=== PATIENT | male | born 1935 | race Caucasian/White ===

== ENCOUNTER 2017-12-05 12:47 | Inpatient (IN) ==
--- NOTE | 2017-12-05 13:57 | Internal Med History&Physical ---
Date of Encounter: 12/05/17 Time of Encounter: 13:52 Assessment and Plan (1) UTI (urinary tract infection) Current visit: No Status: Acute No acute issues. Patient continues on Cipro. Denies any dysuria and is afebrile. Continues with generalized leg weakness and inability to walk. PT/OT eval pending. Qualifiers: Urinary tract infection type: acute cystitis Hematuria presence: without hematuria Qualified Code(s): N30.00 - Acute cystitis without hematuria (2) Diabetes mellitus Current visit: No Status: Chronic No acute issues. Diet controlled at home. Will do fingersticks for 48 to monitor. Recent HgbA1c 6.5 Qualifiers: Diabetes mellitus type: type 2 Diabetes mellitus assisted insulin use: without assisted use Diabetes mellitus complication status: with kidney complications Diabetes mellitus complication detail: with chronic kidney disease Chronic kidney disease stage: stage 3 (moderate) Qualified Code(s): E11.22 - Type 2 diabetes mellitus with diabetic chronic kidney disease; N18.3 - Chronic kidney disease, stage 3 (moderate) (3) CKD (chronic kidney disease) stage 3, GFR 30-59 ml/min Current visit: No Status: Chronic No acute issues. Current Cr 2.1, which is up from his baseline of 1.5. Will continue to monitor with serial labs. Continue on current meds. (4) HTN (hypertension) Current visit: No Status: Chronic VSS. Will continue on current meds. Qualifiers: Hypertension type: essential hypertension Qualified Code(s): I10 - Essential (primary) hypertension (5) CVA (cerebral vascular accident) Current visit: Yes Status: Chronic Patient with Hx of CVA x3. No focal motor deficits noted. Denies any residual from CVA. No hyperreflexia. Noted generalized bilateral leg weakness, but would still rate MS 5/5. Patient with reported slight rigidity noted with motor movement of upper extremities, more prominent distally. Will discuss with Dr. Pena Qualifiers: CVA mechanism: unspecified Qualified Code(s): I63.9 - Cerebral infarction, unspecified (6) Leg ulcer Current visit: Yes Status: Acute Patient with a leg ulceration to the right inner aspect of the leg and a small puntate type wound to the left anterior leg. States both have been blisters that have burst in the past several months and developed into ulcerations. Has been seen by wound care in the past, but now self treats with daily dsg changes at home. Will continue with daily dsg changes. No signs of infection noted. Qualifiers: Laterality: unspecified laterality Non-pressure ulcer stage: unspecified non-pressure ulcer stage Qualified Code(s): L97.909 - Non-pressure chronic ulcer of unspecified part of unspecified lower leg with unspecified severity Internal Medicine - H&P: HPI Chief complaint: weakness Admitted From: Hospital to Hospital Transfer Plans for Post Hospital Care: Home History of present illness: Mr. Paulson is a 82 year old male with past medical history of CVA with residual weakness, type 2 diabetes, hyperlipidemia, hypertension who presents to [facility] emergency department with complaint of weakness since this morning. He states that he felt sudden onset weakness while sitting on the toilet and was unable to get back up. He spent approximately 3 hours on the toilet before his found him and called EMS. He states he has experienced this one time before approximately 5 months ago where he was diagnosed with UTI and discharged without being admitted on antibiotic. He denies any focal weakness or loss of consciousness during this time. He does admit to some dysuria but denies any frequency, hematuria, flank pain, changes in bowel movements, dizziness, lightheadedness, nausea, vomiting, flank pain, fevers, chills. He states his bowel movements have been normal without any evidence of blood and is not experiencing any confusion or altered mental status. Laboratory results were significant for a white count of 22.4 and a BUNs/ creatinine of 28/1.90 which is around his baseline. They did not obtain a head CT at that time which was negative for acute process as well as a chest x-ray which showed possible atelectasis otherwise within normal limits. Urinalysis shows evidence of nitrites and leukocyte esterase with bacteria and was sent for culture. Patient was treated with Cipro for his UTI. Rec'd fluid resuscitation and recovered well prior to DC to rehab. Patient appears relaxed and denies any current discomforts or dyspnea. States that he remains unable to walk since his admission due to weakness. States that he was able to walk >100 ft at home prior to admission. Denies any residue to his previous CVA and no focal deficits noted during exam. Patient with a wound to the inner aspect of the right leg with scant amount of serous drainage rec' d. Wound appears approx 1-2 cm x 5 cm. Patient states that he has had the wound for several weeks and has been seen in a wound clinic for it, but now treats it at home. Small punctate type wound also noted to the left anterior leg, which he states is almost healed. States that these were blisters that had burst and became ulcerations. Past Med Surg Social Fam HX - Past Medical History Medical history: CVA, diabetes, hyperlipidemia, hypertension, renal disease Additional medical history: CVA x4 Psychiatric history: no psych history - Past Surgical History Additional surgical history: left knee surgery - Social History Smoking Status: Light tobacco smoker Smokeless Tobacco Status: No Alcohol use: none Drug use: none - Family History Father Hx Family Cancer: Yes (Brain Tumor) Brother Adopted: No Age: 80 Living Status: Still Living Internal Medicine - H&P: Meds Citalopram [CeleXA] 40 mg PO DAILY 10/16/16 [History] Clopidogrel [Plavix] 75 mg PO DAILY 10/16/16 [History] Gabapentin [Neurontin] 300 mg PO TID 10/16/16 [History] Simvastatin [Zocor] 20 mg PO HS 10/16/16 [History] Furosemide [Lasix] 20 mg PO DAILY 12/02/17 [History] Iron Ps Cmplx/Vit B12/FA [Poly-Iron 150 Forte Capsule] 1 cap PO DAILY 12/02/17 [ History] Multivits,Ca,Min/Iron/FA/Lycop [Centrum Men's Tablet] 3 tab PO DAILY 12/02/17 [ History] Potassium Chloride [Klor-Con 10] 10 meq PO BID 12/02/17 [History] Ciprofloxacin [Cipro] 500 mg PO BID #8 tablet 12/04/17 [Rx] 3 Allergy/AdvReac Type Severity Reaction Status Date / Time Penicillins Allergy See Verified 11/13/17 22:32 Comments All Systems PM: A 10-system review of systems was performed and is negative for pertinent findings except as documented above in the HPI. - Constitutional Constitutional: as per HPI, no chills, no fever(s), no night sweats - EENT Eyes: no change in vision, no discharge, no pain, no photophobia Ears: no ear discharge, no ear pain, no tinnitus Nose, mouth and throat: no dysphagia, no nasal discharge, no neck pain, no sore throat - Cardiovascular Cardiovascular ROS IM: as per HPI, no chest pain, no diaphoresis, no dyspnea, no lightheadedness, no palpitations, no syncope - Respiratory Respiratory: as per HPI, no cough, no dyspnea, no wheezing, no excessive phlegm production - Gastrointestinal Gastrointestinal: no abdominal pain, no diarrhea, no hematemesis, no hematochezia, no melena, no nausea, no vomiting - Musculoskeletal Musculoskeletal ROS IM: as per HPI, muscle weakness, no numbness, no tingling - Integumentary Integumentary IM: as per HPI, skin ulcer, no rash, no unusual bruising - Neurological Neurological ROS: no confusion, no convulsions, no focal weakness, no numbness, no tingling, no tremor(s) - Hematologic/Lymphatic Hematologic/Lymphatic: no easy bruising - Constitutional Vitals: Temp Pulse BP Pulse Ox 97.4 F L 82 154/74 97 12/05/17 13:01 12/05/17 13:01 12/05/17 13:01 12/05/17 13:01 General appearance: Present: A&O X 3, pleasant - Head Head exam: Present: atraumatic, normocephalic - Eye Eye exam: Present: PERRL, conjuntiva pink, sclera anicteric Pupils: Present: PERRL - Neck Neck exam general surgery: Present: supple, trachea midline. Absent: lymphadenopathy - Respiratory Respiratory exam: Present: CTAB. Absent: accessory muscle use, rales, rhonchi, wheezes Additional comments: Lungs are CTA to the upper killian an diminished to the bases. Resp effort is relaxed. No productive cough noted. - Cardiovascular Cardiovascular exam: Present: RRR, +S1, +S2. Absent: diastolic murmur, gallop, rubs, systolic murmur - GI/Abdominal GI/Abdominal exam: Present: normal bowel sounds, soft, no peritoneal signs. Absent: distended, tenderness - Extremities Exam Extremities exam: Present: warm, radial pulses palpable and symmetrical. Absent : calf tenderness, cyanotic, pedal edema Additional comments: No focal weakness noted. Noted 1-2 x 5 cm wound to the inner right leg. Scant serous drainage noted. No erythema. Small 1cm punctuate type wound to the left anterior leg. No drainage and no erythema. Bilateral legs have +1 pitting edema. - Neurological Exam Neurological exam: Present: CN II-XII intact, oriented X3, no focal deficits. Absent: pronater drift, facial droop, speech deficit - Skin Skin exam: Present: dry, intact
--- NOTE | 2017-12-05 14:30 | Physcial Medicine-Consult Note ---
Date of Encounter: 12/05/17 Time of Encounter: 14:25 Physical Medicine - AP (1) CVA (cerebral vascular accident) Comments: He has old CVA with right sided incoordination, tremor and rigidity. Present grasp reflex indicates some type of frontal lobe injurey. Status: Chronic Assessment and plan: Patient is appropriate for inpatient rehab services. He may benefit from a trial of Sinemet if his rigidity interferes with function. Initiate rehab services. Skin care for stasis ulcers. Bowel program for constipation. Add speech eval for swallowing eval. Code(s): I63.9 - Cerebral infarction, unspecified SNOMED Code(s): 755423057 Physical Medicine - HPI - Data of Consult Requesting Physician: Edwin Pena MD Primary Care Provider: Eleazar Gray MD - Consult Narrative History of present illness: Mr. Paulson is a 82 year old RH male with previous CVA X4, admitted acutely to [facility] in transfer from [place] ED with UTI, Sepsis, and decline in function. He admits to loss of sensation in his feet, constipation, and intermittent difficulty swallowing. He denies pain, visual change, or loss of sensation elsewhere. Due to his generalized weakness, he has become dependent for mobility and ADL. He has not moved his bowels in 2.5 days. His normal habit at home is every other day. CC: Edwin Pena MD Past Med Surg Social Fam HX - Past Medical History Attestation: Yes The following information was validated with the patient. Medical history: CVA, diabetes, hyperlipidemia, hypertension, renal disease Additional medical history: CVA x4 Psychiatric history: no psych history - Past Surgical History Additional surgical history: left knee surgery - Social History Smoking Status: Light tobacco smoker Smokeless Tobacco Status: No Alcohol use: none Drug use: none - Family History Father Hx Family Cancer: Yes (Brain Tumor) Brother Adopted: No Age: 80 Living Status: Still Living Medications and Allergies Citalopram [CeleXA] 40 mg PO DAILY 10/16/16 [History] Clopidogrel [Plavix] 75 mg PO DAILY 10/16/16 [History] Gabapentin [Neurontin] 300 mg PO TID 10/16/16 [History] Simvastatin [Zocor] 20 mg PO HS 10/16/16 [History] Furosemide [Lasix] 20 mg PO DAILY 12/02/17 [History] Iron Ps Cmplx/Vit B12/FA [Poly-Iron 150 Forte Capsule] 1 cap PO DAILY 12/02/17 [ History] Multivits,Ca,Min/Iron/FA/Lycop [Centrum Men's Tablet] 3 tab PO DAILY 12/02/17 [ History] Potassium Chloride [Klor-Con 10] 10 meq PO BID 12/02/17 [History] Ciprofloxacin [Cipro] 500 mg PO BID #8 tablet 12/04/17 [Rx] 3 Allergy/AdvReac Type Severity Reaction Status Date / Time Penicillins Allergy See Verified 11/13/17 22:32 Comments All systems: reviewed and no additional remarkable complaints except as stated ( As noted in PMH and HPI.) Physical Medicine - Exam - Constitutional Vitals: Temp Pulse BP Pulse Ox 97.4 F L 82 154/74 97 12/05/17 13:01 12/05/17 13:01 12/05/17 13:01 12/05/17 13:01 General appearance: cooperative, morbidly obese, no acute distress - Head Head exam: Present: atraumatic, normocephalic - Eye Eye exam: Present: EOMI - ENT ENT exam: Present: mucous membranes moist Additional comments: Tongue protrudes midline. - Neck Neck exam: Present: full ROM. Absent: tenderness - Respiratory Respiratory exam: Present: decreased breath sounds, rales Additional comments: Rales in left base. - Cardiovascular Cardiovascular exam: Present: RRR. Absent: diastolic murmur, gallop, rubs, systolic murmur - GI/Abdominal GI/Abdominal exam: Present: diminished bowel sounds, distended. Absent: tenderness - Extremities Exam Additional comments: 3+ BLE edemal Strength 4+/5 throughout Unstageable stasis ulcers [id number] above right medial malleolus, and [id number] on right instep/distal tibia. Superficial. POA - Neurological Exam Neurological exam: Present: abnormal gait, alert, CN II-XII intact, motor sensory deficit, oriented X3, reflexes normal, strengths equal and symetr throughout. Absent: pronater drift, facial droop Additional comments: No Santos's. He has uninhibited grasp release reflex. He has mild ridigity and tremor. Sensation absent in the toes and normalizes proximal Visual killian are full to confrontation. - Psychiatric Psychiatric exam: Present: depressed, normal affect, normal mood - Skin Additional comments: See extremity exam. Consult Discharge Plan - Plan Referrals: Eleazar Gray MD [Primary Care Provider] -
[2017-12-05] MEDS: *HR* Heparin 5,000 UNIT/ML VIAL SQ SCH (17:46)
[2017-12-05] MEDS: Gabapentin 300 MG CAPSULE PO SCH ×2 (17:47→21:57)
[2017-12-05] MEDS: Sennosides/Docusate Sodium TABLET PO SCH (21:57)
[2017-12-06 05:27] LABS: Basophils # 0.1 K/mcL (0.0-0.2); Basophils % 0.6 %; Eosinophils # 0.3 K/mcL (0.0-0.6); Eosinophils % 2.7 %; Hematocrit 31.8 % (37.5-50.1); Hemoglobin 10.6 g/dL (12.9-16.9); Immature Granulocytes % 0.9 % (0-4); Lymphocytes # 2.3 K/mcL (0.6-4.6); Lymphocytes % 23.3 %; Mean Corpuscular HGB Conc 33.3 g/dL (31.6-35.5); Mean Platelet Volume 8.9 fL (9.4-12.4); Monocytes % 10.1 %; Platelet Count 210 K/mcL (140-400); Red Blood Count 3.42 M/mcL (4.19-5.50); Red Cell Distribution Width 13.6 % (11.5-14.5); Segmented Neutrophils % 62.4 %
[2017-12-06 05:29] LABS: INR 1.1; Prothrombin Time 11.9 Seconds (9.4-12.1)
[2017-12-06 05:32] LABS: Activated Partial Thrombo Time 30.2 Seconds (26.0-36.0)
[2017-12-06 05:44] LABS: Calcium 8.2 mg/dL (8.6-10.3); Potassium 3.9 mEq/L (3.5-5.1)
[2017-12-06] MEDS: Multivit/Ca/Min/Fe/FA 1 TAB TABLET PO SCH (05:53)
[2017-12-06] MEDS: *HR* Heparin 5,000 UNIT/ML VIAL SQ SCH ×2 (05:54→17:25)
[2017-12-06] MEDS: Gabapentin 300 MG CAPSULE PO SCH ×3 (08:37→20:47)
[2017-12-06] MEDS: Sennosides/Docusate Sodium TABLET PO SCH ×2 (08:37→20:48)
[2017-12-06] MEDS: Furosemide 20 MG TABLET PO SCH (08:37)
--- NOTE | 2017-12-06 09:31 | Internal Med Progress Note ---
Date of Encounter: 12/06/17 Time of Encounter: 09:29 - Assessment and plan (1) UTI (urinary tract infection) Current Visit: No Status: Acute Assessment and plan: On cipor seems to be done afebrile Qualifiers: Urinary tract infection type: acute cystitis Hematuria presence: without hematuria Qualified Code(s): N30.00 - Acute cystitis without hematuria (2) CKD (chronic kidney disease) stage 3, GFR 30-59 ml/min Current Visit: No Status: Chronic Assessment and plan: His creatinine noted to be 2.5 needs to r/o any obstruction bladder scan few times cath if more then 300 cc will follow adjust meds as needed based on his Kidney function (3) Diabetes mellitus Current Visit: No Status: Chronic Assessment and plan: Sldiign scale and followup he is not taking any meds at the present time Qualifiers: Diabetes mellitus type: type 2 Diabetes mellitus longterm insulin use: without longterm use Diabetes mellitus complication status: with kidney complications Diabetes mellitus complication detail: with chronic kidney disease Chronic kidney disease stage: stage 3 (moderate) Qualified Code(s): E11.22 - Type 2 diabetes mellitus with diabetic chronic kidney disease; N18.3 - Chronic kidney disease, stage 3 (moderate) - Subjective Interval history: cross coverage no acute issues denies any chest pain SOB feels that his UTI is getting better no fever or chill overall he feels much better then he came in and was admitted - Constitutional Vitals: Temp Pulse Resp BP Pulse Ox 98.0 F 75 18 108/54 93 12/06/17 07:15 12/06/17 07:15 12/06/17 07:15 12/06/17 07:15 12/06/17 07:15 General appearance: Present: A&O X 3, pleasant, answers questions appropriately - Head Head exam: Present: atraumatic - Eye Eye exam: Present: EOMI, PERRL - Neck Neck exam general surgery: Present: supple. Absent: tenderness, nuchal rigidity - Respiratory Respiratory exam: Present: CTAB. Absent: respiratory distress, rhonchi, stridor , wheezes, tachypnea - Cardiovascular Cardiovascular exam: Present: RRR, +S1, +S2. Absent: diastolic murmur, irregular rhythm, JVD - GI/Abdominal GI/Abdominal exam: Present: normal bowel sounds, soft. Absent: distended, firm , guarding, rebound, rigid - Extremities Exam Extremities exam: Absent: pedal edema, tenderness - Neurological Exam Neurological exam: Present: alert, CN II-XII intact, oriented X3, strengths equal and symetr throughout. Absent: no focal deficits, facial droop, speech deficit Internal Medicine: Result - Labs CBC & Chem 7: 12/06/17 04:45 12/06/17 04:45 Labs: Short CBC 12/06/17 Range/Units 04:45 WBC 9.7 (4.3-11.1) K/mcL Hgb 10.6 L D (12.9-16.9) g/dL Hct 31.8 L (37.5-50.1) % Plt Count 210 (140-400) K/mcL Neutrophils # 6.0 (1.6-8.9) K/mcL BMP 12/06/17 04:45 Sodium 135 L Potassium 3.9 Chloride 102 Carbon Dioxide 24 BUN 43 H Creatinine 2.87 H Glucose 117 H Calcium 8.2 L - ABG Interpretation ABG results: PT/INR, D-dimer PT 11.9 Seconds (9.4-12.1) 12/06/17 04:45 - VTE Documentation of Mechanical Device: Graduated compression elastic hosiery Consult Discharge Plan - Plan Referrals: Eleazar Gray MD [Primary Care Provider] -
[2017-12-07] MEDS: *HR* Heparin 5,000 UNIT/ML VIAL SQ SCH ×2 (05:17→18:15)
[2017-12-07 05:26] LABS: Calcium 8.6 mg/dL (8.6-10.3); Potassium 4.1 mEq/L (3.5-5.1)
--- NOTE | 2017-12-07 10:01 | Internal Med Progress Note ---
Date of Encounter: 12/07/17 Time of Encounter: 09:59 - Assessment and plan (1) UTI (urinary tract infection) Current Visit: No Status: Acute Assessment and plan: on Cipro stable . Qualifiers: Urinary tract infection type: acute cystitis Hematuria presence: without hematuria Qualified Code(s): N30.00 - Acute cystitis without hematuria (2) CKD (chronic kidney disease) stage 3, GFR 30-59 ml/min Current Visit: No Status: Chronic Assessment and plan: Creatinine is getting better slowly improving . (3) Diabetes mellitus Current Visit: No Status: Chronic Assessment and plan: stable continue to monitor Qualifiers: Diabetes mellitus type: type 2 Diabetes mellitus superintendent container terminal insulin use: without superintendent container terminal use Diabetes mellitus complication status: with kidney complications Diabetes mellitus complication detail: with chronic kidney disease Chronic kidney disease stage: stage 3 (moderate) Qualified Code(s): E11.22 - Type 2 diabetes mellitus with diabetic chronic kidney disease; N18.3 - Chronic kidney disease, stage 3 (moderate) - Subjective Interval history: cross coverage No acute issues no SOB no chest pain no nausea vomiting or diarrhea He is complaining of constipation otherwise he feels fine . - Constitutional Vitals: Temp Pulse Resp BP Pulse Ox 97.8 F 96 16 112/71 92 12/07/17 08:01 12/07/17 08:01 12/07/17 08:01 12/07/17 08:01 12/07/17 08:01 General appearance: Present: A&O X 3, pleasant, answers questions appropriately - Head Head exam: Present: atraumatic - Eye Eye exam: Present: EOMI, PERRL Pupils: Present: PERRL - Neck Neck exam general surgery: Absent: tenderness, nuchal rigidity - Respiratory Respiratory exam: Present: CTAB. Absent: chest wall tenderness, rales, respiratory distress, rhonchi, stridor, wheezes, tachypnea - Cardiovascular Cardiovascular exam: Present: RRR, +S1, +S2. Absent: irregular rhythm, JVD - GI/Abdominal GI/Abdominal exam: Present: normal bowel sounds, soft. Absent: distended, firm , guarding, rebound, rigid, tenderness Additional comments: obese and soft - Extremities Exam Extremities exam: Present: pedal edema. Absent: tenderness - Neurological Exam Neurological exam: Present: altered, CN II-XII intact, oriented X3, no focal deficits. Absent: facial droop, speech deficit Internal Medicine: Result - Labs CBC & Chem 7: 12/06/17 04:45 12/07/17 04:41 Labs: BMP 12/07/17 04:41 Sodium 136 Potassium 4.1 Chloride 102 Carbon Dioxide 26 BUN 40 H Creatinine 2.67 H Glucose 145 H Calcium 8.6 - ABG Interpretation ABG results: PT/INR, D-dimer PT 11.9 Seconds (9.4-12.1) 12/06/17 04:45 - VTE Documentation of Mechanical Device: Graduated compression elastic hosiery Consult Discharge Plan - Plan Referrals: Eleazar Gray MD [Primary Care Provider] -
[2017-12-07] MEDS: Sennosides/Docusate Sodium TABLET PO SCH ×2 (11:21→20:02)
[2017-12-07] MEDS: Gabapentin 300 MG CAPSULE PO SCH ×2 (11:21→20:02)
[2017-12-07] MEDS: Furosemide 20 MG TABLET PO SCH (11:22)
[2017-12-07] MEDS: Multivit/Ca/Min/Fe/FA 1 TAB TABLET PO SCH (11:23)
[2017-12-08] MEDS: *HR* Heparin 5,000 UNIT/ML VIAL SQ SCH ×2 (05:00→18:32)
[2017-12-08 05:56] LABS: INR 1.1; Prothrombin Time 12.4 Seconds (9.4-12.1)
[2017-12-08 05:57] LABS: Basophils # 0.1 K/mcL (0.0-0.2); Basophils % 0.5 %; Eosinophils # 0.2 K/mcL (0.0-0.6); Eosinophils % 1.6 %; Hematocrit 34.9 % (37.5-50.1); Hemoglobin 11.6 g/dL (12.9-16.9); Immature Granulocytes % 1.2 % (0-4); Lymphocytes # 1.8 K/mcL (0.6-4.6); Lymphocytes % 16.5 %; Mean Corpuscular HGB Conc 33.2 g/dL (31.6-35.5); Mean Corpuscular Hemoglobin 31.4 pg (28.0-33.3); Mean Corpuscular Volume 94.3 fL (83.0-100.0); Mean Platelet Volume 8.5 fL (9.4-12.4); Neutrophils # 7.5 K/mcL (1.6-8.9); Platelet Count 232 K/mcL (140-400); Red Cell Distribution Width 13.4 % (11.5-14.5); Segmented Neutrophils % 71.2 %
[2017-12-08 05:59] LABS: Activated Partial Thrombo Time 31.6 Seconds (26.0-36.0)
[2017-12-08 06:12] LABS: Calcium 8.6 mg/dL (8.6-10.3); Potassium 4.4 mEq/L (3.5-5.1)
[2017-12-08] MEDS: Gabapentin 300 MG CAPSULE PO SCH ×3 (09:52→21:37)
[2017-12-08] MEDS: Multivit/Ca/Min/Fe/FA 1 TAB TABLET PO SCH (09:52)
[2017-12-08] MEDS: Furosemide 20 MG TABLET PO SCH (09:52)
[2017-12-08] MEDS: Sennosides/Docusate Sodium TABLET PO SCH ×2 (09:52→21:38)
[2017-12-08 10:43] LABS: Estimated Average Glucose 143 mg/dl; Hemoglobin A1C 6.6 %
--- NOTE | 2017-12-08 15:53 | Internal Med Progress Note ---
Date of Encounter: 12/08/17 Time of Encounter: 15:51 - Assessment and plan (1) UTI (urinary tract infection) Current Visit: Yes Status: Acute Assessment and plan: Improving. Continue cipro Qualifiers: Urinary tract infection type: acute cystitis Hematuria presence: without hematuria Qualified Code(s): N30.00 - Acute cystitis without hematuria (2) Diabetes mellitus Current Visit: Yes Status: Chronic Assessment and plan: Controlled. Monitor fingerstick blood sugar. Will adjust medications as necessary. Qualifiers: Diabetes mellitus type: type 2 Diabetes mellitus intermodal truck driver insulin use: without intermodal truck driver use Diabetes mellitus complication status: with kidney complications Diabetes mellitus complication detail: with chronic kidney disease Chronic kidney disease stage: stage 3 (moderate) Qualified Code(s): E11.22 - Type 2 diabetes mellitus with diabetic chronic kidney disease; N18.3 - Chronic kidney disease, stage 3 (moderate) (3) CKD (chronic kidney disease) stage 3, GFR 30-59 ml/min Current Visit: Yes Status: Chronic Assessment and plan: Stable. Creatinine 2.25 BUN 34. Will continue to monitor labs. Avoid any nephrotoxic agents. - Time Spent With Patient less than 15 minutes - Subjective Interval history: Participating well with therapy. Maintaining appetite and hydration. Denies fever, chills, nausea vomiting or diarrhea. Denies any other urinary symptoms denies shortness of breath or chest pain. - Constitutional Vitals: Temp Pulse Resp BP Pulse Ox 97.8 F 76 16 157/70 96 12/08/17 07:38 12/08/17 07:38 12/08/17 07:38 12/08/17 07:38 12/08/17 07:38 General appearance: Present: A&O X 3, pleasant, obese, answers questions appropriately - Head Head exam: Present: atraumatic, normocephalic - Eye Eye exam: Present: PERRL, conjuntiva pink, sclera anicteric Pupils: Present: PERRL - Neck Neck exam general surgery: Present: supple, trachea midline. Absent: lymphadenopathy - Respiratory Respiratory exam: Present: CTAB. Absent: accessory muscle use, rales, rhonchi, wheezes - Cardiovascular Cardiovascular exam: Present: RRR, +S1, +S2. Absent: diastolic murmur, gallop, rubs, systolic murmur - GI/Abdominal GI/Abdominal exam: Present: normal bowel sounds, soft, no peritoneal signs. Absent: distended, tenderness - Extremities Exam Extremities exam: Present: warm, radial pulses palpable and symmetrical. Absent : calf tenderness, cyanotic, pedal edema - Neurological Exam Neurological exam: Present: CN II-XII intact, oriented X3, no focal deficits. Absent: pronater drift, facial droop, speech deficit - Skin Skin exam: Present: dry, intact Internal Medicine: Result - Labs CBC & Chem 7: 12/08/17 05:20 12/08/17 05:20 Labs: Short CBC 12/08/17 Range/Units 05:20 WBC 10.6 (4.3-11.1) K/mcL Hgb 11.6 L (12.9-16.9) g/dL Hct 34.9 L (37.5-50.1) % Plt Count 232 (140-400) K/mcL Neutrophils # 7.5 (1.6-8.9) K/mcL BMP 12/08/17 05:20 Sodium 139 Potassium 4.4 Chloride 104 Carbon Dioxide 27 BUN 34 H Creatinine 2.25 H Glucose 147 H Calcium 8.6 - ABG Interpretation ABG results: PT/INR, D-dimer PT 12.4 Seconds (9.4-12.1) H 12/08/17 05:20 - VTE Documentation of Mechanical Device: Graduated compression elastic hosiery Consult Discharge Plan - Plan Referrals: Eleazar Gray MD [Primary Care Provider] -
[2017-12-09] MEDS: *HR* Heparin 5,000 UNIT/ML VIAL SQ SCH ×2 (05:22→18:27)
[2017-12-09] MEDS: Multivit/Ca/Min/Fe/FA 1 TAB TABLET PO SCH (11:07)
[2017-12-09] MEDS: Furosemide 20 MG TABLET PO SCH (11:08)
[2017-12-09] MEDS: Gabapentin 300 MG CAPSULE PO SCH ×3 (11:08→22:15)
[2017-12-09] MEDS: Sennosides/Docusate Sodium TABLET PO SCH ×2 (11:09→22:15)
--- NOTE | 2017-12-09 13:03 | Internal Med Progress Note ---
Date of Encounter: 12/09/17 Time of Encounter: 13:01 - Assessment and plan (1) UTI (urinary tract infection) Current Visit: Yes Status: Acute Assessment and plan: Improving. Continue cipro Qualifiers: Urinary tract infection type: acute cystitis Hematuria presence: without hematuria Qualified Code(s): N30.00 - Acute cystitis without hematuria (2) Diabetes mellitus Current Visit: Yes Status: Chronic Assessment and plan: Controlled. Monitor fingerstick blood sugar. Will adjust medications as necessary. Qualifiers: Diabetes mellitus type: type 2 Diabetes mellitus dedicated intermodal truck driver insulin use: without dedicated intermodal truck driver use Diabetes mellitus complication status: with kidney complications Diabetes mellitus complication detail: with chronic kidney disease Chronic kidney disease stage: stage 3 (moderate) Qualified Code(s): E11.22 - Type 2 diabetes mellitus with diabetic chronic kidney disease; N18.3 - Chronic kidney disease, stage 3 (moderate) (3) CKD (chronic kidney disease) stage 3, GFR 30-59 ml/min Current Visit: Yes Status: Chronic Assessment and plan: Stable. Creatinine 2.25 BUN 34. Will continue to monitor labs. Avoid any nephrotoxic agents. - Time Spent With Patient less than 15 minutes - Subjective Interval history: Participating well with therapy. Maintaining appetite and hydration. Denies fever, chills, nausea vomiting or diarrhea. Denies any other urinary symptoms denies shortness of breath or chest pain. Incontinent of bowel today after receiving laxative. - Constitutional Vitals: Temp Pulse Resp BP Pulse Ox 98.5 F 82 16 150/69 95 12/09/17 07:00 12/09/17 07:00 12/09/17 07:00 12/09/17 07:00 12/09/17 07:00 General appearance: Present: A&O X 3, pleasant, obese, answers questions appropriately - Head Head exam: Present: atraumatic, normocephalic - Eye Eye exam: Present: PERRL, conjuntiva pink, sclera anicteric Pupils: Present: PERRL - Neck Neck exam general surgery: Present: supple, trachea midline. Absent: lymphadenopathy - Respiratory Respiratory exam: Present: CTAB. Absent: accessory muscle use, rales, rhonchi, wheezes - Cardiovascular Cardiovascular exam: Present: RRR, +S1, +S2. Absent: diastolic murmur, gallop, rubs, systolic murmur - GI/Abdominal GI/Abdominal exam: Present: normal bowel sounds, soft, no peritoneal signs. Absent: distended, tenderness - Extremities Exam Extremities exam: Present: warm, radial pulses palpable and symmetrical. Absent : calf tenderness, cyanotic, pedal edema Additional comments: Bilateral lower extremities wrapped with [place] - Neurological Exam Neurological exam: Present: CN II-XII intact, oriented X3, no focal deficits. Absent: pronater drift, facial droop, speech deficit - Skin Skin exam: Present: dry, intact Internal Medicine: Result - Labs CBC & Chem 7: 12/08/17 05:20 12/08/17 05:20 - ABG Interpretation ABG results: PT/INR, D-dimer PT 12.4 Seconds (9.4-12.1) H 12/08/17 05:20 - VTE Documentation of Mechanical Device: Graduated compression elastic hosiery Consult Discharge Plan - Plan Referrals: Eleazar Gray MD [Primary Care Provider] -
[2017-12-10] MEDS: Multivit/Ca/Min/Fe/FA 1 TAB TABLET PO SCH (06:39)
[2017-12-10] MEDS: *HR* Heparin 5,000 UNIT/ML VIAL SQ SCH ×2 (06:39→18:02)
[2017-12-10] MEDS: Furosemide 20 MG TABLET PO SCH (10:30)
[2017-12-10] MEDS: Gabapentin 300 MG CAPSULE PO SCH ×3 (10:30→20:00)
[2017-12-10] MEDS: Sennosides/Docusate Sodium TABLET PO SCH (10:30)
[2017-12-10] MEDS ORDERED: Sennosides/Docusate Sodium TABLET PO PRN (10:45)
--- NOTE | 2017-12-10 12:40 | Internal Med Progress Note ---
Date of Encounter: 12/10/17 Time of Encounter: 12:37 - Assessment and plan (1) UTI (urinary tract infection) Current Visit: Yes Status: Acute Assessment and plan: This is clinically stable and without symptoms. He has been afebrile, etc. Qualifiers: Urinary tract infection type: acute cystitis Hematuria presence: without hematuria Qualified Code(s): N30.00 - Acute cystitis without hematuria (2) Diabetes mellitus Current Visit: Yes Status: Chronic Assessment and plan: He is without complaint and is doing reasonably well. We will continue current regimen. Qualifiers: Diabetes mellitus type: type 2 Diabetes mellitus alf insulin use: without terminal carman use Diabetes mellitus complication status: with kidney complications Diabetes mellitus complication detail: with chronic kidney disease Chronic kidney disease stage: stage 3 (moderate) Qualified Code(s): E11.22 - Type 2 diabetes mellitus with diabetic chronic kidney disease; N18.3 - Chronic kidney disease, stage 3 (moderate) (3) CKD (chronic kidney disease) stage 3, GFR 30-59 ml/min Current Visit: Yes Status: Chronic Assessment and plan: This is clinically stable and patient has no change in symptoms, etc. (4) HTN (hypertension) Current Visit: No Status: Chronic Assessment and plan: Clinically stable. We will continue home regimen and follow. Qualifiers: Hypertension type: essential hypertension Qualified Code(s): I10 - Essential (primary) hypertension (5) HLD (hyperlipidemia) Current Visit: No Status: Chronic Assessment and plan: Clinically stable. We will continue same regimen. Qualifiers: Hyperlipidemia type: unspecified Qualified Code(s): E78.5 - Hyperlipidemia , unspecified (6) CVA (cerebral vascular accident) Current Visit: Yes Status: Chronic Assessment and plan: These are remote and no current deficits seem to impact rehabilitation. Qualifiers: CVA mechanism: unspecified Qualified Code(s): I63.9 - Cerebral infarction, unspecified - Subjective Interval history: Patient has no acute issues. He is feeling well and moving his bowels and bladder well. He denies chest pain or abdominal pain, etc. He has no other acute issues. Nursing notes that he has been irascible. Discussed care with other providers and/or nursing. Patient has no complaint of chest discomfort, dyspnea, orthopnea, palpitations, nausea or vomiting, constipation or diarrhea, other changes in bowel habits, difficulty with urination, rash or itching, or other new complaints, except as mentioned above. Review of systems is otherwise negative. - Constitutional Vitals: Temp Pulse Resp BP Pulse Ox 98.2 F 80 16 162/78 96 12/10/17 06:30 12/10/17 06:30 12/10/17 06:30 12/10/17 06:30 12/10/17 06:30 General appearance: Present: pleasant, obese Exam: Examination: (Except as mentioned above): General: In no apparent distress. Alert and oriented 3. Nondiaphoretic. Head: Atraumatic and normocephalic. Respiratory: No use of accessory muscles. Lungs are clear throughout. Normal airflow. Cardiovascular: Regular rate and rhythm without murmur appreciated. Abdomen: Bowel sounds are normal. No hepatosplenomegaly mass or tenderness appreciated. Obese and therefore difficult to palpate deeply. Patient is examined upright in chair and this also limits exam. Extremities: No cyanosis clubbing or change in edema. Skin: Warm and non-diaphoretic with no new lesions noted. Internal Medicine: Result - Labs CBC & Chem 7: 12/08/17 05:20 12/08/17 05:20 - ABG Interpretation ABG results: PT/INR, D-dimer PT 12.4 Seconds (9.4-12.1) H 12/08/17 05:20 - VTE Documentation of Mechanical Device: Graduated compression elastic hosiery Consult Discharge Plan - Plan Referrals: Eleazar Gray MD [Primary Care Provider] -
[2017-12-11] MEDS: Multivit/Ca/Min/Fe/FA 1 TAB TABLET PO SCH (06:04)
[2017-12-11] MEDS: *HR* Heparin 5,000 UNIT/ML VIAL SQ SCH ×2 (06:04→18:32)
[2017-12-11] MEDS: Gabapentin 300 MG CAPSULE PO SCH ×3 (09:14→21:20)
[2017-12-11] MEDS: Furosemide 20 MG TABLET PO SCH (09:14)
--- NOTE | 2017-12-11 10:03 | Internal Med Progress Note ---
Date of Encounter: 12/11/17 Time of Encounter: 10:01 - Assessment and plan (1) UTI (urinary tract infection) Current Visit: Yes Status: Acute Assessment and plan: No acute issues. Patient maintains afebrile. Patient is finished his antibiotics and appears asymptomatic. Qualifiers: Urinary tract infection type: acute cystitis Hematuria presence: without hematuria Qualified Code(s): N30.00 - Acute cystitis without hematuria (2) Diabetes mellitus Current Visit: Yes Status: Chronic Assessment and plan: o acute issues. Patient's glucose has remained between 150-160. We will cover with sliding scale insulin. Qualifiers: Diabetes mellitus type: type 2 Diabetes mellitus retirement insulin use: without petroleum terminal plant operator use Diabetes mellitus complication status: with kidney complications Diabetes mellitus complication detail: with chronic kidney disease Chronic kidney disease stage: stage 3 (moderate) Qualified Code(s): E11.22 - Type 2 diabetes mellitus with diabetic chronic kidney disease; N18.3 - Chronic kidney disease, stage 3 (moderate) (3) CKD (chronic kidney disease) stage 3, GFR 30-59 ml/min Current Visit: Yes Status: Chronic Assessment and plan: No acute issues. Labs show creatinine to 2.25. We will continue with current medications and follow with serial labs. (4) HTN (hypertension) Current Visit: No Status: Chronic Assessment and plan: Vital signs remained stable. We will continue with current medications. Qualifiers: Hypertension type: essential hypertension Qualified Code(s): I10 - Essential (primary) hypertension (5) CVA (cerebral vascular accident) Current Visit: Yes Status: Chronic Assessment and plan: No acute issues. Patient shows no focal deficits on exam. Patient with history of remote CVA. We will continue with physical therapy Qualifiers: CVA mechanism: unspecified Qualified Code(s): I63.9 - Cerebral infarction, unspecified (6) Leg ulcer Current Visit: Yes Status: Acute Assessment and plan: Leg wounds appear to be healing well. Dressings are dry and intact. We will have wound care continue to follow. No signs of infection noted. Qualifiers: Laterality: unspecified laterality Non-pressure ulcer stage: unspecified non-pressure ulcer stage Qualified Code(s): L97.909 - Non-pressure chronic ulcer of unspecified part of unspecified lower leg with unspecified severity (7) Yeast dermatitis Current Visit: Yes Status: Acute Assessment and plan: Patient noted to have a yeast-type infection to his groin and scrotal area. No open wounds noted. We will start on nystatin cream twice a day - Time Spent With Patient less than 15 minutes - Subjective Interval history: Patient appears relaxed and currently denies any discomforts or shortness of breath. Patient states that he feels physical therapy has been progressing well and has stated that he is anxious to be discharged home. Patient states that he believes his leg wounds were healing well and that wound care has been there to evaluate. - Constitutional Vitals: Temp Pulse Resp BP Pulse Ox 97.7 F 77 14 149/81 97 12/11/17 07:00 12/11/17 07:00 12/11/17 07:00 12/11/17 07:00 12/11/17 07:00 General appearance: Present: A&O X 3, pleasant, obese - Head Head exam: Present: atraumatic, normocephalic - Eye Eye exam: Present: PERRL, conjuntiva pink, sclera anicteric Pupils: Present: PERRL - Neck Neck exam general surgery: Present: supple, trachea midline. Absent: lymphadenopathy - Respiratory Respiratory exam: Present: CTAB. Absent: accessory muscle use, rales, rhonchi, wheezes Additional comments: Lungs are clear throughout upper [place] and diminished to posterior basis. Respiratory effort appears relaxed. No productive cough noted. - Cardiovascular Cardiovascular exam: Present: RRR, +S1, +S2. Absent: diastolic murmur, gallop, rubs, systolic murmur - GI/Abdominal GI/Abdominal exam: Present: normal bowel sounds, soft, no peritoneal signs. Absent: distended, tenderness - Extremities Exam Extremities exam: Present: warm, radial pulses palpable and symmetrical. Absent : calf tenderness, cyanotic, pedal edema Additional comments: Patient continues to have +1 edema to bilateral lower legs. Patient also has a a wound ulceration to the inner aspect of the right leg with dressing dry and intact. Patient has a punctate type wound ulceration to the left anterior leg - Neurological Exam Neurological exam: Present: CN II-XII intact, oriented X3, no focal deficits. Absent: pronater drift, facial droop, speech deficit - Skin Skin exam: Present: dry, intact Internal Medicine: Result - Labs CBC & Chem 7: 12/08/17 05:20 12/08/17 05:20 - ABG Interpretation ABG results: PT/INR, D-dimer PT 12.4 Seconds (9.4-12.1) H 12/08/17 05:20 - VTE Documentation of Mechanical Device: Graduated compression elastic hosiery Consult Discharge Plan - Plan Referrals: Eleazar Gray MD [Primary Care Provider] -
[2017-12-12 05:26] LABS: Hematocrit 36.3 % (37.5-50.1); Hemoglobin 12.1 g/dL (12.9-16.9); Mean Corpuscular HGB Conc 33.3 g/dL (31.6-35.5); Mean Corpuscular Volume 93.1 fL (83.0-100.0); Mean Platelet Volume 8.5 fL (9.4-12.4); Platelet Count 215 K/mcL (140-400); Red Cell Distribution Width 13.2 % (11.5-14.5)
[2017-12-12 05:45] LABS: Albumin 3.5 g/dL (3.5-5.7); Albumin/Globulin Ratio 1.4 (1.1-2.2); Bilirubin,Total 0.7 mg/dL (0.3-1.0); Calcium 8.3 mg/dL (8.6-10.3); Globulin 2.5 g/dL (2.4-3.5); Magnesium 2.3 mg/dL (1.6-2.6); Potassium 4.1 mEq/L (3.5-5.1)
[2017-12-12] MEDS: Nystatin POWDER 30 GM BOTTLE TP SCH ×2 (06:10→22:08)
[2017-12-12] MEDS: *HR* Heparin 5,000 UNIT/ML VIAL SQ SCH ×2 (06:11→18:41)
[2017-12-12] MEDS: Multivit/Ca/Min/Fe/FA 1 TAB TABLET PO SCH (06:11)
[2017-12-12] MEDS: Ascorbic Acid 500 MG TABLET PO SCH (09:25)
[2017-12-12] MEDS: Gabapentin 300 MG CAPSULE PO SCH ×3 (09:26→22:08)
[2017-12-12] MEDS: Furosemide 20 MG TABLET PO SCH (09:26)
--- NOTE | 2017-12-12 12:50 | Internal Med Progress Note ---
Date of Encounter: 12/12/17 Time of Encounter: 12:47 - Assessment and plan (1) UTI (urinary tract infection) Current Visit: Yes Status: Acute Assessment and plan: No acute issues. Patient maintains afebrile. Patient is finished his antibiotics and appears asymptomatic. Qualifiers: Urinary tract infection type: acute cystitis Hematuria presence: without hematuria Qualified Code(s): N30.00 - Acute cystitis without hematuria (2) Diabetes mellitus Current Visit: Yes Status: Chronic Assessment and plan: o acute issues. Patient's glucose has remained between 150-160. We will cover with sliding scale insulin. Qualifiers: Diabetes mellitus type: type 2 Diabetes mellitus extermination inspector insulin use: without group home use Diabetes mellitus complication status: with kidney complications Diabetes mellitus complication detail: with chronic kidney disease Chronic kidney disease stage: stage 3 (moderate) Qualified Code(s): E11.22 - Type 2 diabetes mellitus with diabetic chronic kidney disease; N18.3 - Chronic kidney disease, stage 3 (moderate) (3) CKD (chronic kidney disease) stage 3, GFR 30-59 ml/min Current Visit: Yes Status: Chronic Assessment and plan: No acute issues. Labs show creatinine to 2.25. We will continue with current medications and follow with serial labs. (4) HTN (hypertension) Current Visit: No Status: Chronic Assessment and plan: Vital signs remained stable. We will continue with current medications. Qualifiers: Hypertension type: essential hypertension Qualified Code(s): I10 - Essential (primary) hypertension (5) CVA (cerebral vascular accident) Current Visit: Yes Status: Chronic Assessment and plan: No acute issues. Patient shows no focal deficits on exam. Patient with history of remote CVA. We will continue with physical therapy Qualifiers: CVA mechanism: unspecified Qualified Code(s): I63.9 - Cerebral infarction, unspecified (6) Leg ulcer Current Visit: Yes Status: Acute Assessment and plan: Leg wounds appear to be healing well. Dressings are dry and intact. We will have wound care continue to follow. No signs of infection noted. Qualifiers: Laterality: unspecified laterality Non-pressure ulcer stage: unspecified non-pressure ulcer stage Qualified Code(s): L97.909 - Non-pressure chronic ulcer of unspecified part of unspecified lower leg with unspecified severity (7) Yeast dermatitis Current Visit: Yes Status: Acute Assessment and plan: Patient noted to have a yeast-type infection to his groin and scrotal area. No open wounds noted. We will continue on nystatin cream twice a day - Subjective Interval history: Patient appears relaxed and currently denies any discomforts or shortness of breath. Patient states that he believes his leg wounds were healing well and that wound care has been there to evaluate. - Constitutional Vitals: Temp Pulse Resp BP Pulse Ox 97.8 F 80 16 148/87 96 12/12/17 07:00 12/12/17 07:00 12/12/17 07:00 12/12/17 07:00 12/12/17 07:00 General appearance: Present: A&O X 3, pleasant, obese - Head Head exam: Present: atraumatic, normocephalic - Eye Eye exam: Present: PERRL, conjuntiva pink, sclera anicteric Pupils: Present: PERRL - Neck Neck exam general surgery: Present: supple, trachea midline. Absent: lymphadenopathy - Respiratory Respiratory exam: Present: CTAB. Absent: accessory muscle use, rales, rhonchi, wheezes - Cardiovascular Cardiovascular exam: Present: RRR, +S1, +S2. Absent: diastolic murmur, gallop, rubs, systolic murmur Additional comments: Lungs are clear throughout upper [place] but noted diminished to lower basilar kill[place] - GI/Abdominal GI/Abdominal exam: Present: normal bowel sounds, soft, no peritoneal signs. Absent: distended, tenderness - Extremities Exam Extremities exam: Present: warm, radial pulses palpable and symmetrical. Absent : calf tenderness, cyanotic, pedal edema Additional comments: Patient continues to have +2 edema to lower extremities. Dressing to right inner leg and anterior left leg remained dry and intact. - Neurological Exam Neurological exam: Present: CN II-XII intact, oriented X3, no focal deficits. Absent: pronater drift, facial droop, speech deficit - Skin Skin exam: Present: dry, intact Internal Medicine: Result - Labs CBC & Chem 7: 12/12/17 04:00 12/12/17 04:00 Labs: Short CBC 12/12/17 Range/Units 04:00 WBC 10.3 (4.3-11.1) K/mcL Hgb 12.1 L (12.9-16.9) g/dL Hct 36.3 L (37.5-50.1) % Plt Count 215 (140-400) K/mcL BMP 12/12/17 04:00 Sodium 138 Potassium 4.1 Chloride 105 Carbon Dioxide 23 BUN 24 H Creatinine 1.62 H Glucose 106 H Calcium 8.3 L Liver Function 12/12/17 Range/Units 04:00 Total Bilirubin 0.7 (0.3-1.0) mg/dL AST 25 (13-39) Units/L ALT 41 (7-52) Units/L Alkaline Phosphatase 57 (34-104) Units/L Albumin 3.5 (3.5-5.7) g/dL - ABG Interpretation ABG results: PT/INR, D-dimer PT 12.4 Seconds (9.4-12.1) H 12/08/17 05:20 - VTE Documentation of Mechanical Device: Graduated compression elastic hosiery Consult Discharge Plan - Plan Referrals: Eleazar Gray MD [Primary Care Provider] -
[2017-12-13] MEDS: *HR* Heparin 5,000 UNIT/ML VIAL SQ SCH ×2 (05:01→17:33)
[2017-12-13] MEDS: Multivit/Ca/Min/Fe/FA 1 TAB TABLET PO SCH (05:01)
[2017-12-13] MEDS: Ascorbic Acid 500 MG TABLET PO SCH (08:47)
[2017-12-13] MEDS: Gabapentin 300 MG CAPSULE PO SCH ×3 (08:47→22:15)
[2017-12-13] MEDS: Furosemide 20 MG TABLET PO SCH (08:47)
[2017-12-13] MEDS: Nystatin POWDER 30 GM BOTTLE TP SCH ×2 (08:48→22:15)
--- NOTE | 2017-12-13 14:54 | Internal Med Progress Note ---
Date of Encounter: 12/13/17 Time of Encounter: 14:52 - Assessment and plan (1) UTI (urinary tract infection) Current Visit: Yes Status: Acute Assessment and plan: This is clinically stable and without symptoms. He has been afebrile, etc. Qualifiers: Urinary tract infection type: acute cystitis Hematuria presence: without hematuria Qualified Code(s): N30.00 - Acute cystitis without hematuria (2) Diabetes mellitus Current Visit: Yes Status: Chronic Assessment and plan: This is been reasonably stable. We will continue current regimen. Qualifiers: Diabetes mellitus type: type 2 Diabetes mellitus transcript clerk insulin use: without snf use Diabetes mellitus complication status: with kidney complications Diabetes mellitus complication detail: with chronic kidney disease Chronic kidney disease stage: stage 3 (moderate) Qualified Code(s): E11.22 - Type 2 diabetes mellitus with diabetic chronic kidney disease; N18.3 - Chronic kidney disease, stage 3 (moderate) (3) CKD (chronic kidney disease) stage 3, GFR 30-59 ml/min Current Visit: Yes Status: Chronic Assessment and plan: This is clinically stable and his labs have actually improved. Will check again in a couple of days. (4) HTN (hypertension) Current Visit: No Status: Chronic Assessment and plan: Clinically stable. We will continue home regimen and follow. Qualifiers: Hypertension type: essential hypertension Qualified Code(s): I10 - Essential (primary) hypertension (5) HLD (hyperlipidemia) Current Visit: No Status: Chronic Assessment and plan: Clinically stable. We will continue same regimen. Qualifiers: Hyperlipidemia type: unspecified Qualified Code(s): E78.5 - Hyperlipidemia , unspecified (6) CVA (cerebral vascular accident) Current Visit: Yes Status: Chronic Assessment and plan: This is remote and he has no sign of recurrent stroke, at this time. I reassured patient and , regarding the same the other day.. Qualifiers: CVA mechanism: unspecified Qualified Code(s): I63.9 - Cerebral infarction, unspecified - Subjective Interval history: Patient states that he is doing well and wants to go home. He is participating well with therapy and feels that he is giving it "all he's got." We discussed therapy and stability of fall risk, at length. Discussed care with other providers and/or nursing. Patient has no complaint of chest discomfort, dyspnea, orthopnea, palpitations, nausea or vomiting, constipation or diarrhea, other changes in bowel habits, difficulty with urination, rash or itching, or other new complaints, except as mentioned above. Review of systems is otherwise negative. - Constitutional Vitals: Temp Pulse Resp BP Pulse Ox 97.7 F 83 18 148/72 98 12/13/17 07:00 12/13/17 07:00 12/13/17 07:00 12/13/17 07:00 12/13/17 07:00 General appearance: Present: pleasant, obese Exam: Examination: (Except as mentioned above): General: In no apparent distress. Alert and oriented 3. Nondiaphoretic. Head: Atraumatic and normocephalic. Respiratory: No use of accessory muscles. Lungs are clear throughout. Normal airflow. Cardiovascular: Regular rate and rhythm without murmur appreciated. Abdomen: Bowel sounds are normal. No hepatosplenomegaly mass or tenderness appreciated. Morbidly obese and therefore difficult to palpate deeply. Extremities: No cyanosis clubbing or change in edema. This means that he still has 2-3+ edema at both lower extremities. Skin: Warm and non-diaphoretic with no new lesions noted. Internal Medicine: Result - Labs CBC & Chem 7: 12/12/17 04:00 12/12/17 04:00 - ABG Interpretation ABG results: PT/INR, D-dimer PT 12.4 Seconds (9.4-12.1) H 12/08/17 05:20 - VTE Documentation of Mechanical Device: Graduated compression elastic hosiery Consult Discharge Plan - Plan Referrals: Eleazar Gray MD [Primary Care Provider] -
[2017-12-14] MEDS: Multivit/Ca/Min/Fe/FA 1 TAB TABLET PO SCH (06:55)
[2017-12-14] MEDS: *HR* Heparin 5,000 UNIT/ML VIAL SQ SCH ×2 (06:55→17:33)
[2017-12-14] MEDS: Furosemide 20 MG TABLET PO SCH (07:51)
[2017-12-14] MEDS: Gabapentin 300 MG CAPSULE PO SCH ×3 (07:51→20:47)
[2017-12-14] MEDS: Nystatin POWDER 30 GM BOTTLE TP SCH ×2 (07:51→20:50)
[2017-12-14] MEDS: Ascorbic Acid 500 MG TABLET PO SCH (07:51)
--- NOTE | 2017-12-14 12:07 | Internal Med Progress Note ---
Date of Encounter: 12/14/17 Time of Encounter: 12:01 - Assessment and plan (1) Physical deconditioning Current Visit: Yes Status: Acute Assessment and plan: continue PT and OT. will follow progress. (2) Diabetes mellitus Current Visit: Yes Status: Chronic Assessment and plan: Controlled. Monitor fingerstick blood sugar. Will adjust medications as necessary. Qualifiers: Diabetes mellitus type: type 2 Diabetes mellitus fci insulin use: without fci use Diabetes mellitus complication status: with kidney complications Diabetes mellitus complication detail: with chronic kidney disease Chronic kidney disease stage: stage 3 (moderate) Qualified Code(s): E11.22 - Type 2 diabetes mellitus with diabetic chronic kidney disease; N18.3 - Chronic kidney disease, stage 3 (moderate) (3) CKD (chronic kidney disease) stage 3, GFR 30-59 ml/min Current Visit: Yes Status: Chronic Assessment and plan: Stable. Creatinine 2.25 BUN 34. Will continue to monitor labs. Avoid any nephrotoxic agents. - Time Spent With Patient less than 15 minutes - Subjective Interval history: Participating well with therapy. Maintaining appetite and hydration. Denies fever, chills, nausea vomiting or diarrhea. denies shortness of breath or chest pain. bowels moving as normal. - Constitutional Vitals: Temp Pulse Resp BP Pulse Ox 98 F 80 17 158/78 95 12/14/17 06:49 12/14/17 06:49 12/14/17 06:49 12/14/17 06:49 12/14/17 06:49 General appearance: Present: A&O X 3, pleasant, obese, answers questions appropriately - Head Head exam: Present: atraumatic, normocephalic - Eye Eye exam: Present: PERRL, conjuntiva pink, sclera anicteric Pupils: Present: PERRL - Neck Neck exam general surgery: Present: supple, trachea midline. Absent: lymphadenopathy - Respiratory Respiratory exam: Present: CTAB. Absent: accessory muscle use, rales, rhonchi, wheezes - Cardiovascular Cardiovascular exam: Present: RRR, +S1, +S2. Absent: diastolic murmur, gallop, rubs, systolic murmur - GI/Abdominal GI/Abdominal exam: Present: normal bowel sounds, soft, no peritoneal signs. Absent: distended, tenderness - Extremities Exam Extremities exam: Present: warm, radial pulses palpable and symmetrical. Absent : calf tenderness, cyanotic, pedal edema - Neurological Exam Neurological exam: Present: CN II-XII intact, oriented X3, no focal deficits. Absent: pronater drift, facial droop, speech deficit - Skin Skin exam: Present: dry, intact Internal Medicine: Result - Labs CBC & Chem 7: 12/12/17 04:00 12/12/17 04:00 - ABG Interpretation ABG results: PT/INR, D-dimer PT 12.4 Seconds (9.4-12.1) H 12/08/17 05:20 - VTE Documentation of Mechanical Device: Graduated compression elastic hosiery Consult Discharge Plan - Plan Referrals: Eleazar Gray MD [Primary Care Provider] -
[2017-12-15 05:58] LABS: Basophils # 0.1 K/mcL (0.0-0.2); Basophils % 0.4 %; Eosinophils # 0.3 K/mcL (0.0-0.6); Eosinophils % 2.3 %; Hematocrit 33.8 % (37.5-50.1); Hemoglobin 11.2 g/dL (12.9-16.9); INR 1.1; Immature Granulocytes % 0.9 % (0-4); Lymphocytes # 2.1 K/mcL (0.6-4.6); Lymphocytes % 17.2 %; Mean Corpuscular HGB Conc 33.1 g/dL (31.6-35.5); Mean Corpuscular Hemoglobin 30.9 pg (28.0-33.3); Mean Corpuscular Volume 93.1 fL (83.0-100.0); Mean Platelet Volume 8.3 fL (9.4-12.4); Monocytes # 0.9 K/mcL (0.0-1.3); Platelet Count 213 K/mcL (140-400); Prothrombin Time 12.3 Seconds (9.4-12.1); Red Blood Count 3.63 M/mcL (4.19-5.50); Red Cell Distribution Width 13.6 % (11.5-14.5); Segmented Neutrophils % 72.2 %
[2017-12-15 06:01] LABS: Activated Partial Thrombo Time 31.9 Seconds (26.0-36.0)
[2017-12-15 06:13] LABS: Calcium 8.2 mg/dL (8.6-10.3); Potassium 4.2 mEq/L (3.5-5.1)
[2017-12-15] MEDS: *HR* Heparin 5,000 UNIT/ML VIAL SQ SCH ×2 (06:30→18:32)
[2017-12-15] MEDS: Multivit/Ca/Min/Fe/FA 1 TAB TABLET PO SCH (06:33)
[2017-12-15] MEDS: Furosemide 20 MG TABLET PO SCH (08:24)
[2017-12-15] MEDS: Ascorbic Acid 500 MG TABLET PO SCH (08:24)
[2017-12-15] MEDS: Gabapentin 300 MG CAPSULE PO SCH ×3 (08:24→22:52)
[2017-12-15] MEDS: Nystatin POWDER 30 GM BOTTLE TP SCH ×2 (08:24→22:52)
--- NOTE | 2017-12-15 11:34 | Internal Med Progress Note ---
Date of Encounter: 12/15/17 Time of Encounter: 11:32 - Assessment and plan (1) Diabetes mellitus Current Visit: Yes Status: Chronic Assessment and plan: Controlled. Monitor fingerstick blood sugar. Will adjust medications as necessary. Qualifiers: Diabetes mellitus type: type 2 Diabetes mellitus usp insulin use: without intermediate accountant use Diabetes mellitus complication status: with kidney complications Diabetes mellitus complication detail: with chronic kidney disease Chronic kidney disease stage: stage 3 (moderate) Qualified Code(s): E11.22 - Type 2 diabetes mellitus with diabetic chronic kidney disease; N18.3 - Chronic kidney disease, stage 3 (moderate) (2) CKD (chronic kidney disease) stage 3, GFR 30-59 ml/min Current Visit: Yes Status: Chronic Assessment and plan: Stable. Will continue to monitor labs. Avoid any nephrotoxic agents. (3) Blister Current Visit: Yes Status: Acute Assessment and plan: wound to monitor. wear left heal lift boot while in bed. (4) Leukocytosis Current Visit: Yes Status: Acute Assessment and plan: was treated recently for UTI. will repeat U/A. will follow for results. Qualifiers: Leukocytosis type: unspecified Qualified Code(s): D72.829 - Elevated white blood cell count, unspecified (5) Yeast dermatitis Current Visit: Yes Status: Acute Assessment and plan: diflucan ordered for 3 days. continue topical treatment. - Time Spent With Patient 25 - 35 minutes - Subjective Interval history: Participating well with therapy. Ambulated with rolater Walker from room to therapy gym. Discussed safety with Walker. Maintaining appetite and hydration. Denies fever, chills, nausea vomiting or diarrhea. denies shortness of breath or chest pain. bowels moving as normal. Nursing reports that groin is still excoriated ,using cream and nystatin. Does not seem to be effective. White blood cell count elevated to 12.2. Will repeat urinalysis. Patient denies any urinary symptoms. Wound reports blister on left heel. Instructed to not wear Tony hose on left leg. Will wear heel lift boot while in bed. - Constitutional Vitals: Temp Pulse Resp BP Pulse Ox 98.0 F 78 18 139/61 95 12/15/17 06:34 12/15/17 06:34 12/15/17 06:34 12/15/17 06:34 12/15/17 06:34 General appearance: Present: A&O X 3, pleasant, obese, answers questions appropriately - Head Head exam: Present: atraumatic, normocephalic - Eye Eye exam: Present: PERRL, conjuntiva pink, sclera anicteric Pupils: Present: PERRL - Neck Neck exam general surgery: Present: supple, trachea midline. Absent: lymphadenopathy - Respiratory Respiratory exam: Present: CTAB. Absent: accessory muscle use, rales, rhonchi, wheezes - Cardiovascular Cardiovascular exam: Present: RRR, +S1, +S2. Absent: diastolic murmur, gallop, rubs, systolic murmur - GI/Abdominal GI/Abdominal exam: Present: normal bowel sounds, soft, no peritoneal signs. Absent: distended, tenderness - Extremities Exam Extremities exam: Present: warm, radial pulses palpable and symmetrical. Absent : calf tenderness, cyanotic, pedal edema - Neurological Exam Neurological exam: Present: CN II-XII intact, oriented X3, no focal deficits. Absent: pronater drift, facial droop, speech deficit - Skin Skin exam: Present: dry, intact Additional comments: Blister to left heal, groin area red and excoriated. Internal Medicine: Result - Labs CBC & Chem 7: 12/15/17 05:50 12/15/17 05:50 Labs: Short CBC 12/15/17 Range/Units 05:50 WBC 12.4 H (4.3-11.1) K/mcL Hgb 11.2 L (12.9-16.9) g/dL Hct 33.8 L (37.5-50.1) % Plt Count 213 (140-400) K/mcL Neutrophils # 9.0 H (1.6-8.9) K/mcL BMP 12/15/17 05:50 Sodium 137 Potassium 4.2 Chloride 106 Carbon Dioxide 24 BUN 19 Creatinine 1.69 H Glucose 131 H Calcium 8.2 L - ABG Interpretation ABG results: PT/INR, D-dimer PT 12.3 Seconds (9.4-12.1) H 12/15/17 05:50 - VTE Documentation of Mechanical Device: Graduated compression elastic hosiery Consult Discharge Plan - Plan Referrals: Eleazar Gray MD [Primary Care Provider] -
[2017-12-15] MEDS: Fluconazole 100 MG TABLET PO SCH (14:21)
[2017-12-15 14:33] LABS: Bilirubin,Urine Negative (Negative); Blood,Urine Negative (Negative); Clarity,Urine Slightly Cloudy (Clear); Color,Urine Yellow (Yellow); Glucose,Urine (UA) Normal (Normal); Ketones,Urine Negative (Negative); Leukocyte Esterase,Urine Moderate (Negative); Nitrite,Urine Negative (Negative); PH,Urine 6.5 pH Units (5.0-8.0); Protein,Urine 30 mg/dL (Neg-Trace); Specific Gravity,Urine 1.015 (1.010-1.025); Urobilinogen,Urine Normal (Normal)
[2017-12-15 14:49] LABS: Bacteria,Urine Moderate per hpf (None-Few); Squamous Epithelial Cell,Urine Many per lpf (None-Few)
[2017-12-16] MEDS: Multivit/Ca/Min/Fe/FA 1 TAB TABLET PO SCH (05:34)
[2017-12-16] MEDS: *HR* Heparin 5,000 UNIT/ML VIAL SQ SCH ×2 (05:34→18:33)
[2017-12-16] MEDS: Fluconazole 100 MG TABLET PO SCH (10:00)
[2017-12-16] MEDS: Gabapentin 300 MG CAPSULE PO SCH ×3 (10:00→21:14)
[2017-12-16] MEDS: Ascorbic Acid 500 MG TABLET PO SCH (10:00)
[2017-12-16] MEDS: Furosemide 20 MG TABLET PO SCH (10:04)
--- NOTE | 2017-12-16 11:28 | Internal Med Progress Note ---
Date of Encounter: 12/16/17 Time of Encounter: 11:26 - Assessment and plan (1) Diabetes mellitus Current Visit: Yes Status: Chronic Assessment and plan: Controlled. Monitor fingerstick blood sugar. Will adjust medications as necessary. Qualifiers: Diabetes mellitus type: type 2 Diabetes mellitus chcf insulin use: without exterminator helper use Diabetes mellitus complication status: with kidney complications Diabetes mellitus complication detail: with chronic kidney disease Chronic kidney disease stage: stage 3 (moderate) Qualified Code(s): E11.22 - Type 2 diabetes mellitus with diabetic chronic kidney disease; N18.3 - Chronic kidney disease, stage 3 (moderate) (2) CKD (chronic kidney disease) stage 3, GFR 30-59 ml/min Current Visit: Yes Status: Chronic Assessment and plan: Stable. Will continue to monitor labs. Avoid any nephrotoxic agents. (3) Blister Current Visit: Yes Status: Acute (4) Leukocytosis Current Visit: Yes Status: Acute Assessment and plan: was treated recently for UTI. will repeat U/A. will follow for results. will repeat CBC in am. Qualifiers: Leukocytosis type: unspecified Qualified Code(s): D72.829 - Elevated white blood cell count, unspecified (5) Yeast dermatitis Current Visit: Yes Status: Acute Assessment and plan: diflucan ordered for 3 days. continue topical treatment. - Time Spent With Patient less than 15 minutes - Subjective Interval history: Participating well with therapy. ambulating in hallway with therapy with walker. Discussed safety with Walker. Maintaining appetite and hydration. Denies fever, chills, nausea vomiting or diarrhea. denies shortness of breath or chest pain. bowels moving as normal. Wound reports blister on left heel. Instructed to not wear Tony hose on left leg. Will wear heel lift boot while in bed. - Constitutional Vitals: Temp Pulse Resp BP Pulse Ox 98.6 F 84 18 151/82 99 12/16/17 06:55 12/16/17 06:55 12/16/17 06:55 12/16/17 06:55 12/16/17 06:55 General appearance: Present: A&O X 3, pleasant, obese, answers questions appropriately - Head Head exam: Present: atraumatic, normocephalic - Eye Eye exam: Present: PERRL, conjuntiva pink, sclera anicteric Pupils: Present: PERRL - Neck Neck exam general surgery: Present: supple, trachea midline. Absent: lymphadenopathy - Respiratory Respiratory exam: Present: CTAB. Absent: accessory muscle use, rales, rhonchi, wheezes - Cardiovascular Cardiovascular exam: Present: RRR, +S1, +S2. Absent: diastolic murmur, gallop, rubs, systolic murmur - GI/Abdominal GI/Abdominal exam: Present: normal bowel sounds, soft, no peritoneal signs. Absent: distended, tenderness - Extremities Exam Extremities exam: Present: warm, radial pulses palpable and symmetrical. Absent : calf tenderness, cyanotic, pedal edema - Neurological Exam Neurological exam: Present: CN II-XII intact, oriented X3, no focal deficits. Absent: pronater drift, facial droop, speech deficit - Skin Skin exam: Present: dry, intact Internal Medicine: Result - Labs CBC & Chem 7: 12/15/17 05:50 12/15/17 05:50 Labs: Urine 12/15/17 Range/Units 14:00 Urine Color Yellow (Yellow) Urine Clarity Slightly Cloudy A (Clear) Urine pH 6.5 (5.0-8.0) pH Units Ur Specific [place] 1.015 (1.010-1.025) Urine Protein 30 H (Neg-Trace) mg/dL Urine Glucose (UA) Normal (Normal) mg/dL - ABG Interpretation ABG results: PT/INR, D-dimer PT 12.3 Seconds (9.4-12.1) H 12/15/17 05:50 - VTE Documentation of Mechanical Device: Graduated compression elastic hosiery Consult Discharge Plan - Plan Referrals: Eleazar Gray MD [Primary Care Provider] -
[2017-12-16] MEDS: Nystatin POWDER 30 GM BOTTLE TP SCH ×2 (18:33→21:16)
[2017-12-17] MEDS: *HR* Heparin 5,000 UNIT/ML VIAL SQ SCH ×2 (05:26→16:59)
[2017-12-17 05:44] LABS: Basophils # 0.1 K/mcL (0.0-0.2); Basophils % 0.6 %; Eosinophils # 0.2 K/mcL (0.0-0.6); Eosinophils % 2.7 %; Hematocrit 34.4 % (37.5-50.1); Hemoglobin 11.5 g/dL (12.9-16.9); Immature Granulocytes % 0.7 % (0-4); Lymphocytes % 23.3 %; Mean Corpuscular HGB Conc 33.4 g/dL (31.6-35.5); Mean Corpuscular Hemoglobin 31.3 pg (28.0-33.3); Mean Corpuscular Volume 93.5 fL (83.0-100.0); Mean Platelet Volume 8.5 fL (9.4-12.4); Monocytes # 0.5 K/mcL (0.0-1.3); Monocytes % 6.4 %; Neutrophils # 5.6 K/mcL (1.6-8.9); Platelet Count 235 K/mcL (140-400); Red Blood Count 3.68 M/mcL (4.19-5.50); Red Cell Distribution Width 13.8 % (11.5-14.5); Segmented Neutrophils % 66.3 %
[2017-12-17 05:57] LABS: Calcium 8.5 mg/dL (8.6-10.3); Potassium 4.3 mEq/L (3.5-5.1)
[2017-12-17] MEDS: Gabapentin 300 MG CAPSULE PO SCH ×3 (07:56→20:26)
[2017-12-17] MEDS: Fluconazole 100 MG TABLET PO SCH (07:56)
[2017-12-17] MEDS: Multivit/Ca/Min/Fe/FA 1 TAB TABLET PO SCH (07:56)
[2017-12-17] MEDS: Ascorbic Acid 500 MG TABLET PO SCH (07:56)
[2017-12-17] MEDS: Furosemide 20 MG TABLET PO SCH (07:56)
[2017-12-17] MEDS: Nystatin POWDER 30 GM BOTTLE TP SCH ×2 (07:57→20:27)
--- NOTE | 2017-12-17 15:20 | Internal Med Progress Note ---
Date of Encounter: 12/17/17 Time of Encounter: 15:18 - Assessment and plan (1) Diabetes mellitus Current Visit: Yes Status: Chronic Assessment and plan: Controlled. Monitor fingerstick blood sugar. Will adjust medications as necessary. Qualifiers: Diabetes mellitus type: type 2 Diabetes mellitus shelter insulin use: without shelter use Diabetes mellitus complication status: with kidney complications Diabetes mellitus complication detail: with chronic kidney disease Chronic kidney disease stage: stage 3 (moderate) Qualified Code(s): E11.22 - Type 2 diabetes mellitus with diabetic chronic kidney disease; N18.3 - Chronic kidney disease, stage 3 (moderate) (2) CKD (chronic kidney disease) stage 3, GFR 30-59 ml/min Current Visit: Yes Status: Chronic Assessment and plan: Stable. Will continue to monitor labs. Avoid any nephrotoxic agents. (3) Blister Current Visit: Yes Status: Acute Assessment and plan: wound to monitor. wear left heal lift boot while in bed. (4) Leukocytosis Current Visit: Yes Status: Acute Assessment and plan: was treated recently for UTI. will repeat U/A. will follow for results. Qualifiers: Leukocytosis type: unspecified Qualified Code(s): D72.829 - Elevated white blood cell count, unspecified (5) Yeast dermatitis Current Visit: Yes Status: Acute Assessment and plan: diflucan ordered for 3 days. continue topical treatment. - Subjective Interval history: Participating well with therapy. ambulating in hallway with therapy with walker. Maintaining appetite and hydration. Denies fever, chills, nausea vomiting or diarrhea. denies shortness of breath or chest pain. bowels moving as normal. L heel lift boot while in bed. Continues to have occasional dysuria and malodorous urine, as well as incontinence is a new issue during this stay. Will repeat urinalysis. - Constitutional Vitals: Temp Pulse Resp BP Pulse Ox 98.3 F 75 16 141/98 96 12/17/17 07:15 12/17/17 07:15 12/17/17 07:15 12/17/17 07:15 12/17/17 07:15 General appearance: Present: A&O X 3, pleasant, obese, answers questions appropriately - Head Head exam: Present: atraumatic, normocephalic - Eye Eye exam: Present: PERRL, conjuntiva pink, sclera anicteric Pupils: Present: PERRL - Neck Neck exam general surgery: Present: supple, trachea midline. Absent: lymphadenopathy - Respiratory Respiratory exam: Present: CTAB. Absent: accessory muscle use, rales, rhonchi, wheezes - Cardiovascular Cardiovascular exam: Present: RRR, +S1, +S2. Absent: diastolic murmur, gallop, rubs, systolic murmur - GI/Abdominal GI/Abdominal exam: Present: normal bowel sounds, soft, no peritoneal signs. Absent: distended, tenderness - Extremities Exam Extremities exam: Present: warm, radial pulses palpable and symmetrical. Absent : calf tenderness, cyanotic, pedal edema - Neurological Exam Neurological exam: Present: CN II-XII intact, oriented X3, no focal deficits. Absent: pronater drift, facial droop, speech deficit - Skin Skin exam: Present: dry, intact Internal Medicine: Result - Labs CBC & Chem 7: 12/17/17 05:20 12/17/17 05:20 Labs: Short CBC 12/17/17 Range/Units 05:20 WBC 8.4 (4.3-11.1) K/mcL Hgb 11.5 L (12.9-16.9) g/dL Hct 34.4 L (37.5-50.1) % Plt Count 235 (140-400) K/mcL Neutrophils # 5.6 (1.6-8.9) K/mcL BMP 12/17/17 05:20 Sodium 138 Potassium 4.3 Chloride 106 Carbon Dioxide 25 BUN 18 Creatinine 1.74 H Glucose 113 H Calcium 8.5 L - ABG Interpretation ABG results: PT/INR, D-dimer PT 12.3 Seconds (9.4-12.1) H 12/15/17 05:50 - VTE Documentation of Mechanical Device: Graduated compression elastic hosiery Consult Discharge Plan - Plan Referrals: Eleazar Gray MD [Primary Care Provider] -
[2017-12-17 17:30] LABS: Bilirubin,Urine Negative (Negative); Blood,Urine Negative (Negative); Clarity,Urine Clear (Clear); Color,Urine Yellow (Yellow); Glucose,Urine (UA) Normal (Normal); Ketones,Urine Negative (Negative); Leukocyte Esterase,Urine Trace (Negative); Nitrite,Urine Negative (Negative); Protein,Urine Negative (Neg-Trace); Urobilinogen,Urine Normal (Normal)
[2017-12-17 17:46] LABS: Transitional Epi Cells,Urine Few per hpf (None-Few)
[2017-12-17 17:47] LABS: Squamous Epithelial Cell,Urine Few per lpf (None-Few); WBC,Urine 0-3 per hpf (0-3)
[2017-12-18] MEDS: Multivit/Ca/Min/Fe/FA 1 TAB TABLET PO SCH (05:49)
[2017-12-18] MEDS: *HR* Heparin 5,000 UNIT/ML VIAL SQ SCH ×2 (05:49→17:41)
[2017-12-18] MEDS: Ascorbic Acid 500 MG TABLET PO SCH (09:36)
[2017-12-18] MEDS: Fluconazole 100 MG TABLET PO SCH (09:36)
[2017-12-18] MEDS: Furosemide 20 MG TABLET PO SCH (09:36)
[2017-12-18] MEDS: Nystatin POWDER 30 GM BOTTLE TP SCH ×2 (09:36→21:10)
[2017-12-18] MEDS: Gabapentin 300 MG CAPSULE PO SCH ×3 (09:36→21:10)
--- NOTE | 2017-12-18 14:46 | Internal Med Progress Note ---
Date of Encounter: 12/18/17 Time of Encounter: 14:44 - Assessment and plan (1) Diabetes mellitus Current Visit: Yes Status: Chronic Assessment and plan: No acute issues. Patient's glucose been well-controlled with most fingersticks readings less than 150. We will cover with sliding scale insulin. Qualifiers: Diabetes mellitus type: type 2 Diabetes mellitus client services specialist insulin use: without senior care use Diabetes mellitus complication status: with kidney complications Diabetes mellitus complication detail: with chronic kidney disease Chronic kidney disease stage: stage 3 (moderate) Qualified Code(s): E11.22 - Type 2 diabetes mellitus with diabetic chronic kidney disease; N18.3 - Chronic kidney disease, stage 3 (moderate) (2) CKD (chronic kidney disease) stage 3, GFR 30-59 ml/min Current Visit: Yes Status: Chronic Assessment and plan: No acute issues. Labs show creatinine to 1.74. We will continue with current medications and follow with serial labs. (3) HTN (hypertension) Current Visit: No Status: Chronic Assessment and plan: Vital signs remained stable. We will continue with current medications. Qualifiers: Hypertension type: essential hypertension Qualified Code(s): I10 - Essential (primary) hypertension (4) CVA (cerebral vascular accident) Current Visit: Yes Status: Chronic Assessment and plan: No acute issues. Patient shows no focal deficits on exam. Patient with history of remote CVA. We will continue with physical therapy Qualifiers: CVA mechanism: unspecified Qualified Code(s): I63.9 - Cerebral infarction, unspecified (5) Leg ulcer Current Visit: Yes Status: Acute Assessment and plan: Leg wounds appear to be healing well. Dressings are dry and intact. We will have wound care continue to follow. No signs of infection noted. Patient also has a blister to the heel of his left foot with currently is cover with a dressing. Wound care will continue follow-up on that also. Qualifiers: Laterality: unspecified laterality Non-pressure ulcer stage: unspecified non-pressure ulcer stage Qualified Code(s): L97.909 - Non-pressure chronic ulcer of unspecified part of unspecified lower leg with unspecified severity - Time Spent With Patient less than 15 minutes - Subjective Interval history: Patient appears relaxed and currently denies any discomforts or shortness of breath. Patient states that he believes his leg wounds were healing well and that wound care has been there to evaluate. Patient also states that he is now on non-weightbearing to his left foot due to a blister that is presented itself on the heel of his foot. - Constitutional Vitals: Temp Pulse Resp BP Pulse Ox 98.4 F 82 18 155/75 96 12/18/17 07:21 12/18/17 07:21 12/18/17 07:21 12/18/17 07:21 12/18/17 07:21 General appearance: Present: A&O X 3, pleasant, obese, answers questions appropriately - Head Head exam: Present: atraumatic, normocephalic - Eye Eye exam: Present: PERRL, conjuntiva pink, sclera anicteric Pupils: Present: PERRL - Neck Neck exam general surgery: Present: supple, trachea midline. Absent: lymphadenopathy - Respiratory Respiratory exam: Present: CTAB. Absent: accessory muscle use, rales, rhonchi, wheezes Additional comments: Lungs are clear throughout upper killian with diminished basilar killian noted. Neck productive cough noted. - Cardiovascular Cardiovascular exam: Present: RRR, +S1, +S2. Absent: diastolic murmur, gallop, rubs, systolic murmur - GI/Abdominal GI/Abdominal exam: Present: normal bowel sounds, soft, no peritoneal signs. Absent: distended, tenderness - Extremities Exam Extremities exam: Present: warm, radial pulses palpable and symmetrical. Absent : calf tenderness, cyanotic, pedal edema Additional comments: Patient has dressing to right anterior leg which is dry and intact. Patient has a blister to the heel of his left which is currently covered with a dressing. Bilateral legs have Unna boots in place. - Neurological Exam Neurological exam: Present: CN II-XII intact, oriented X3, no focal deficits. Absent: pronater drift, facial droop, speech deficit - Skin Skin exam: Present: dry, intact Internal Medicine: Result - Labs CBC & Chem 7: 12/17/17 05:20 12/17/17 05:20 Labs: Urine 12/17/17 Range/Units 14:55 Urine Color Yellow (Yellow) Urine Clarity Clear (Clear) Urine pH 6.0 (5.0-8.0) pH Units Ur Specific [place] 1.020 (1.010-1.025) Urine Protein Negative (Neg-Trace) mg/dL Urine Glucose (UA) Normal (Normal) mg/dL - ABG Interpretation ABG results: PT/INR, D-dimer PT 12.3 Seconds (9.4-12.1) H 12/15/17 05:50 - VTE Documentation of Mechanical Device: Graduated compression elastic hosiery Consult Discharge Plan - Plan Referrals: Eleazar Gray MD [Primary Care Provider] -
[2017-12-19] MEDS: Multivit/Ca/Min/Fe/FA 1 TAB TABLET PO SCH (06:47)
[2017-12-19] MEDS: *HR* Heparin 5,000 UNIT/ML VIAL SQ SCH ×2 (06:47→17:11)
[2017-12-19] MEDS: Ascorbic Acid 500 MG TABLET PO SCH (10:21)
[2017-12-19] MEDS: Gabapentin 300 MG CAPSULE PO SCH ×3 (10:21→20:34)
[2017-12-19] MEDS: Furosemide 20 MG TABLET PO SCH (10:21)
[2017-12-19] MEDS: Nystatin POWDER 30 GM BOTTLE TP SCH ×2 (10:25→20:34)
--- NOTE | 2017-12-19 12:41 | Internal Med Progress Note ---
Date of Encounter: 12/19/17 Time of Encounter: 12:39 - Assessment and plan (1) Diabetes mellitus Current Visit: Yes Status: Chronic Assessment and plan: No acute issues. Patient's glucose been well-controlled with most fingersticks readings less than 150. We will cover with sliding scale insulin. We will continue on current scheduled medications Qualifiers: Diabetes mellitus type: type 2 Diabetes mellitus long-term insulin use: without exterminator termite use Diabetes mellitus complication status: with kidney complications Diabetes mellitus complication detail: with chronic kidney disease Chronic kidney disease stage: stage 3 (moderate) Qualified Code(s): E11.22 - Type 2 diabetes mellitus with diabetic chronic kidney disease; N18.3 - Chronic kidney disease, stage 3 (moderate) (2) CKD (chronic kidney disease) stage 3, GFR 30-59 ml/min Current Visit: Yes Status: Chronic Assessment and plan: No acute issues. Labs show creatinine to 1.74. We will continue with current medications and follow with serial labs. (3) HTN (hypertension) Current Visit: No Status: Chronic Assessment and plan: Vital signs remained stable. We will continue with current medications. Qualifiers: Hypertension type: essential hypertension Qualified Code(s): I10 - Essential (primary) hypertension (4) CVA (cerebral vascular accident) Current Visit: Yes Status: Chronic Assessment and plan: No acute issues. Patient shows no focal deficits on exam. Patient with history of remote CVA. We will continue with physical therapy Qualifiers: CVA mechanism: unspecified Qualified Code(s): I63.9 - Cerebral infarction, unspecified (5) Leg ulcer Current Visit: Yes Status: Acute Assessment and plan: Leg wounds appear to be healing well. Dressings are dry and intact. We will have wound care continue to follow. No signs of infection noted. Patient also has a blister to the heel of his left foot with currently is cover with a dressing. Wound care will continue follow-up on that also. Qualifiers: Laterality: unspecified laterality Non-pressure ulcer stage: unspecified non-pressure ulcer stage Qualified Code(s): L97.909 - Non-pressure chronic ulcer of unspecified part of unspecified lower leg with unspecified severity - Time Spent With Patient less than 15 minutes - Subjective Interval history: Patient appears relaxed and currently denies any discomforts or shortness of breath. Patient states that he believes his leg wounds were healing. Patient states that he believes physical therapy is improving in strength. - Constitutional Vitals: Temp Pulse Resp BP Pulse Ox 98.2 F 77 18 161/85 98 12/19/17 07:18 12/19/17 07:18 12/19/17 07:18 12/19/17 07:18 12/19/17 07:18 General appearance: Present: A&O X 3, pleasant, obese, answers questions appropriately - Head Head exam: Present: atraumatic, normocephalic - Eye Eye exam: Present: PERRL, conjuntiva pink, sclera anicteric Pupils: Present: PERRL - Neck Neck exam general surgery: Present: supple, trachea midline. Absent: lymphadenopathy - Respiratory Respiratory exam: Present: CTAB. Absent: accessory muscle use, rales, rhonchi, wheezes Additional comments: Lungs are clear to up her killian and diminished throughout basilar killian. Respiratory effort appears relaxed. No productive cough noted. - Cardiovascular Cardiovascular exam: Present: RRR, +S1, +S2. Absent: diastolic murmur, gallop, rubs, systolic murmur - GI/Abdominal GI/Abdominal exam: Present: normal bowel sounds, soft, no peritoneal signs. Absent: distended, tenderness - Extremities Exam Extremities exam: Present: warm, radial pulses palpable and symmetrical. Absent : calf tenderness, cyanotic, pedal edema Additional comments: Patient continues to have edema to bilateral legs, but currently has Unna boots in place. Patient has a dressing to his left foot due to a blister on his left heel. Dressing is dry and intact - Neurological Exam Neurological exam: Present: CN II-XII intact, oriented X3, no focal deficits. Absent: pronater drift, facial droop, speech deficit - Skin Skin exam: Present: dry, intact Internal Medicine: Result - Labs CBC & Chem 7: 12/17/17 05:20 12/17/17 05:20 - ABG Interpretation ABG results: PT/INR, D-dimer PT 12.3 Seconds (9.4-12.1) H 12/15/17 05:50 - VTE Documentation of Mechanical Device: Graduated compression elastic hosiery Consult Discharge Plan - Plan Referrals: Eleazar Gray MD [Primary Care Provider] -
[2017-12-20] MEDS: *HR* Heparin 5,000 UNIT/ML VIAL SQ SCH ×2 (05:37→17:55)
[2017-12-20] MEDS: Multivit/Ca/Min/Fe/FA 1 TAB TABLET PO SCH (05:37)
[2017-12-20] MEDS: Gabapentin 300 MG CAPSULE PO SCH ×3 (11:04→21:05)
[2017-12-20] MEDS: Ascorbic Acid 500 MG TABLET PO SCH (11:05)
[2017-12-20] MEDS: Furosemide 20 MG TABLET PO SCH (11:05)
[2017-12-20] MEDS: Nystatin POWDER 30 GM BOTTLE TP SCH ×2 (11:06→21:06)
--- NOTE | 2017-12-20 13:22 | Internal Med Progress Note ---
Date of Encounter: 12/20/17 Time of Encounter: 13:10 - Assessment and plan (1) Diabetes mellitus Current Visit: Yes Status: Chronic Assessment and plan: Stable; continue current regimen. Qualifiers: Diabetes mellitus type: type 2 Diabetes mellitus fdc insulin use: without termite technician use Diabetes mellitus complication status: with kidney complications Diabetes mellitus complication detail: with chronic kidney disease Chronic kidney disease stage: stage 3 (moderate) Qualified Code(s): E11.22 - Type 2 diabetes mellitus with diabetic chronic kidney disease; N18.3 - Chronic kidney disease, stage 3 (moderate) (2) CKD (chronic kidney disease) stage 3, GFR 30-59 ml/min Current Visit: Yes Status: Chronic Assessment and plan: Stable; continue current regimen. (3) HTN (hypertension) Current Visit: No Status: Chronic Assessment and plan: Stable; continue current regimen. Qualifiers: Hypertension type: essential hypertension Qualified Code(s): I10 - Essential (primary) hypertension (4) CVA (cerebral vascular accident) Current Visit: Yes Status: Chronic Assessment and plan: Routine care per PT. Continue current regimen. Qualifiers: CVA mechanism: unspecified Qualified Code(s): I63.9 - Cerebral infarction, unspecified (5) Leg ulcer Current Visit: Yes Status: Acute Assessment and plan: Routine management/care per wound care and our nursing staff. Qualifiers: Laterality: unspecified laterality Non-pressure ulcer stage: unspecified non-pressure ulcer stage Qualified Code(s): L97.909 - Non-pressure chronic ulcer of unspecified part of unspecified lower leg with unspecified severity - Time Spent With Patient less than 15 minutes - Subjective Interval history: No concern, would like to find the channel for the [place] game. - Constitutional Vitals: Temp Pulse Resp BP Pulse Ox 97.8 F 77 18 113/72 95 12/20/17 11:55 12/20/17 11:55 12/20/17 11:55 12/20/17 11:55 12/20/17 11:55 General appearance: Present: A&O X 3, pleasant, obese, answers questions appropriately Exam: Gen: A&Ox3, NAD. Morbidly obese. HEENT: NCAT. Neck: No palpable lymphadenopathy or thyromegaly. CV: RRR, S1S2. No murmur. Capillary refill < 2 seconds. Pulm: CTAB. Abd: (+)BS. NDNT. Neuro: Generalized weakness, otherwise non-focal. Skin: No rash. Ext: No pitting edema. Internal Medicine: Result - Labs CBC & Chem 7: 12/17/17 05:20 12/17/17 05:20 - ABG Interpretation ABG results: PT/INR, D-dimer PT 12.3 Seconds (9.4-12.1) H 12/15/17 05:50 - VTE Documentation of Mechanical Device: Graduated compression elastic hosiery Consult Discharge Plan - Plan Referrals: Eleazar Gray MD [Primary Care Provider] -
[2017-12-21] MEDS: Multivit/Ca/Min/Fe/FA 1 TAB TABLET PO SCH (06:52)
[2017-12-21] MEDS: *HR* Heparin 5,000 UNIT/ML VIAL SQ SCH ×2 (06:52→18:18)
[2017-12-21] MEDS: Furosemide 20 MG TABLET PO SCH (08:26)
[2017-12-21] MEDS: Nystatin POWDER 30 GM BOTTLE TP SCH ×2 (08:26→19:43)
[2017-12-21] MEDS: Gabapentin 300 MG CAPSULE PO SCH ×3 (08:26→19:43)
[2017-12-21] MEDS: Ascorbic Acid 500 MG TABLET PO SCH (08:27)
--- NOTE | 2017-12-21 09:12 | Internal Med Progress Note ---
Date of Encounter: 12/21/17 Time of Encounter: 09:05 - Assessment and plan (1) Diabetes mellitus Current Visit: Yes Status: Chronic Assessment and plan: Stable; continue current regimen. Qualifiers: Diabetes mellitus type: type 2 Diabetes mellitus assisted insulin use: without watermelon inspector use Diabetes mellitus complication status: with kidney complications Diabetes mellitus complication detail: with chronic kidney disease Chronic kidney disease stage: stage 3 (moderate) Qualified Code(s): E11.22 - Type 2 diabetes mellitus with diabetic chronic kidney disease; N18.3 - Chronic kidney disease, stage 3 (moderate) (2) CKD (chronic kidney disease) stage 3, GFR 30-59 ml/min Current Visit: Yes Status: Chronic Assessment and plan: Stable; continue current regimen. (3) HTN (hypertension) Current Visit: No Status: Chronic Assessment and plan: Stable; continue current regimen. Qualifiers: Hypertension type: essential hypertension Qualified Code(s): I10 - Essential (primary) hypertension (4) CVA (cerebral vascular accident) Current Visit: Yes Status: Chronic Assessment and plan: Routine care per PT. Continue current regimen. Qualifiers: CVA mechanism: unspecified Qualified Code(s): I63.9 - Cerebral infarction, unspecified (5) Leg ulcer Current Visit: Yes Status: Acute Assessment and plan: Routine management/care per wound care and our nursing staff. Qualifiers: Laterality: unspecified laterality Non-pressure ulcer stage: unspecified non-pressure ulcer stage Qualified Code(s): L97.909 - Non-pressure chronic ulcer of unspecified part of unspecified lower leg with unspecified severity - Time Spent With Patient less than 15 minutes - Subjective Interval history: Feeling "pretty good." No particular concern at this time. - Constitutional Vitals: Temp Pulse Resp BP Pulse Ox 98.3 F 73 18 171/65 99 12/21/17 08:16 12/21/17 08:16 12/21/17 08:16 12/21/17 08:16 12/21/17 08:16 General appearance: Present: A&O X 3, pleasant, obese, answers questions appropriately Exam: Gen: A&Ox3, NAD. Morbidly obese. HEENT: NCAT. Neck: No palpable lymphadenopathy or thyromegaly. CV: RRR, S1S2. No murmur. Capillary refill < 2 seconds. Pulm: CTAB. Abd: (+)BS. NDNT. Neuro: Generalized weakness, otherwise non-focal. Skin: No rash. Ext: No pitting edema. Internal Medicine: Result - Labs CBC & Chem 7: 12/17/17 05:20 12/17/17 05:20 - ABG Interpretation ABG results: PT/INR, D-dimer PT 12.3 Seconds (9.4-12.1) H 12/15/17 05:50 - VTE Documentation of Mechanical Device: Graduated compression elastic hosiery Consult Discharge Plan - Plan Referrals: Eleazar Gray MD [Primary Care Provider] -
[2017-12-22] MEDS: *HR* Heparin 5,000 UNIT/ML VIAL SQ SCH ×2 (05:27→17:24)
[2017-12-22] MEDS: Multivit/Ca/Min/Fe/FA 1 TAB TABLET PO SCH (05:28)
[2017-12-22 06:19] LABS: Basophils % 0.5 %; Eosinophils # 0.2 K/mcL (0.0-0.6); Eosinophils % 2.7 %; Hematocrit 35.5 % (37.5-50.1); Hemoglobin 11.7 g/dL (12.9-16.9); INR 1.1; Immature Granulocytes % 0.7 % (0-4); Lymphocytes # 2.1 K/mcL (0.6-4.6); Mean Corpuscular Volume 93.9 fL (83.0-100.0); Mean Platelet Volume 8.9 fL (9.4-12.4); Monocytes # 0.6 K/mcL (0.0-1.3); Monocytes % 7.3 %; Neutrophils # 5.1 K/mcL (1.6-8.9); Platelet Count 248 K/mcL (140-400); Prothrombin Time 11.9 Seconds (9.4-12.1); Red Blood Count 3.78 M/mcL (4.19-5.50); Red Cell Distribution Width 14.1 % (11.5-14.5); Segmented Neutrophils % 62.8 %
[2017-12-22 06:22] LABS: Activated Partial Thrombo Time 34.4 Seconds (26.0-36.0)
[2017-12-22 06:30] LABS: Calcium 8.5 mg/dL (8.6-10.3); Potassium 4.4 mEq/L (3.5-5.1)
[2017-12-22] MEDS: Furosemide 20 MG TABLET PO SCH (08:09)
[2017-12-22] MEDS: Gabapentin 300 MG CAPSULE PO SCH ×3 (08:09→19:33)
[2017-12-22] MEDS: Ascorbic Acid 500 MG TABLET PO SCH (08:10)
[2017-12-22] MEDS: Nystatin POWDER 30 GM BOTTLE TP SCH ×2 (08:10→19:33)
--- NOTE | 2017-12-22 12:09 | Internal Med Progress Note ---
Date of Encounter: 12/22/17 Time of Encounter: 12:00 - Assessment and plan (1) Diabetes mellitus Current Visit: Yes Status: Chronic Assessment and plan: Stable; continue current regimen. Qualifiers: Diabetes mellitus type: type 2 Diabetes mellitus buttermaker continuous churn insulin use: without buttermaker continuous churn use Diabetes mellitus complication status: with kidney complications Diabetes mellitus complication detail: with chronic kidney disease Chronic kidney disease stage: stage 3 (moderate) Qualified Code(s): E11.22 - Type 2 diabetes mellitus with diabetic chronic kidney disease; N18.3 - Chronic kidney disease, stage 3 (moderate) (2) CKD (chronic kidney disease) stage 3, GFR 30-59 ml/min Current Visit: Yes Status: Chronic Assessment and plan: Stable; continue current regimen. (3) HTN (hypertension) Current Visit: No Status: Chronic Assessment and plan: Stable; continue current regimen. Qualifiers: Hypertension type: essential hypertension Qualified Code(s): I10 - Essential (primary) hypertension (4) CVA (cerebral vascular accident) Current Visit: Yes Status: Chronic Assessment and plan: Routine care per PT. Continue current regimen. Qualifiers: CVA mechanism: unspecified Qualified Code(s): I63.9 - Cerebral infarction, unspecified (5) Leg ulcer Current Visit: Yes Status: Acute Assessment and plan: Routine management/care per wound care and our nursing staff. Qualifiers: Laterality: unspecified laterality Non-pressure ulcer stage: unspecified non-pressure ulcer stage Qualified Code(s): L97.909 - Non-pressure chronic ulcer of unspecified part of unspecified lower leg with unspecified severity - Time Spent With Patient less than 15 minutes - Subjective Interval history: Feeling "okay." No particular concern at this time. - Constitutional Vitals: Temp Pulse Resp BP Pulse Ox 97.7 F 74 16 147/68 97 12/22/17 06:58 12/22/17 06:58 12/22/17 06:58 12/22/17 06:58 12/22/17 06:58 General appearance: Present: A&O X 3, pleasant, obese, answers questions appropriately Exam: Gen: A&Ox3, NAD. Morbidly obese. HEENT: NCAT. Neck: No palpable lymphadenopathy or thyromegaly. CV: RRR, S1S2. No murmur. Pulm: CTAB. Abd: (+)BS. NDNT. Neuro: Generalized weakness, otherwise non-focal. Skin: No rash. Ext: No pitting edema. Internal Medicine: Result - Labs CBC & Chem 7: 12/22/17 05:45 12/22/17 05:45 Labs: Short CBC 12/22/17 Range/Units 05:45 WBC 8.1 (4.3-11.1) K/mcL Hgb 11.7 L (12.9-16.9) g/dL Hct 35.5 L (37.5-50.1) % Plt Count 248 (140-400) K/mcL Neutrophils # 5.1 (1.6-8.9) K/mcL BMP 12/22/17 05:45 Sodium 137 Potassium 4.4 Chloride 106 Carbon Dioxide 25 BUN 16 Creatinine 1.52 H Glucose 117 H Calcium 8.5 L - ABG Interpretation ABG results: PT/INR, D-dimer PT 11.9 Seconds (9.4-12.1) 12/22/17 05:45 - VTE Documentation of Mechanical Device: Graduated compression elastic hosiery Consult Discharge Plan - Plan Referrals: Eleazar Gray MD [Primary Care Provider] -
[2017-12-23] MEDS: Multivit/Ca/Min/Fe/FA 1 TAB TABLET PO SCH (05:49)
[2017-12-23] MEDS: *HR* Heparin 5,000 UNIT/ML VIAL SQ SCH ×2 (05:49→17:14)
[2017-12-23] MEDS: Nystatin POWDER 30 GM BOTTLE TP SCH ×2 (08:25→22:25)
[2017-12-23] MEDS: Ascorbic Acid 500 MG TABLET PO SCH (08:25)
[2017-12-23] MEDS: Furosemide 20 MG TABLET PO SCH (08:25)
[2017-12-23] MEDS: Gabapentin 300 MG CAPSULE PO SCH ×3 (08:25→22:23)
--- NOTE | 2017-12-23 11:05 | Internal Med Progress Note ---
Date of Encounter: 12/23/17 Time of Encounter: 11:03 - Assessment and plan (1) Diabetes mellitus Current Visit: Yes Status: Chronic Assessment and plan: Controlled. Monitor fingerstick blood sugar. Will adjust medications as necessary. Qualifiers: Diabetes mellitus type: type 2 Diabetes mellitus fpc insulin use: without spinning machine operator use Diabetes mellitus complication status: with kidney complications Diabetes mellitus complication detail: with chronic kidney disease Chronic kidney disease stage: stage 3 (moderate) Qualified Code(s): E11.22 - Type 2 diabetes mellitus with diabetic chronic kidney disease; N18.3 - Chronic kidney disease, stage 3 (moderate) (2) CKD (chronic kidney disease) stage 3, GFR 30-59 ml/min Current Visit: Yes Status: Chronic Assessment and plan: Stable. Will continue to monitor labs. Avoid any nephrotoxic agents. (3) Yeast dermatitis Current Visit: Yes Status: Acute Assessment and plan: improving. continue topical treatment. - Time Spent With Patient less than 15 minutes - Subjective Interval history: Participating well with therapy. ambulating in hallway with therapy with walker. Maintaining appetite and hydration. Denies fever, chills, nausea vomiting or diarrhea. denies shortness of breath or chest pain. bowels moving as normal. denies urinary issues. L heel lift boot while in bed. wound care to see today. bilat LE wrapped. - Constitutional Vitals: Temp Pulse Resp BP Pulse Ox 97.8 F 79 16 145/75 96 12/23/17 07:29 12/23/17 07:29 12/23/17 07:29 12/23/17 07:29 12/23/17 07:29 General appearance: Present: A&O X 3, pleasant, obese, answers questions appropriately - Head Head exam: Present: atraumatic, normocephalic - Eye Eye exam: Present: PERRL, conjuntiva pink, sclera anicteric Pupils: Present: PERRL - Neck Neck exam general surgery: Present: supple, trachea midline. Absent: lymphadenopathy - Respiratory Respiratory exam: Present: CTAB. Absent: accessory muscle use, rales, rhonchi, wheezes - Cardiovascular Cardiovascular exam: Present: RRR, +S1, +S2. Absent: diastolic murmur, gallop, rubs, systolic murmur - GI/Abdominal GI/Abdominal exam: Present: normal bowel sounds, soft, no peritoneal signs. Absent: distended, tenderness - Extremities Exam Extremities exam: Present: warm, radial pulses palpable and symmetrical. Absent : calf tenderness, cyanotic, pedal edema Additional comments: bilat LE wrapped. - Neurological Exam Neurological exam: Present: CN II-XII intact, oriented X3, no focal deficits. Absent: pronater drift, facial droop, speech deficit - Skin Skin exam: Present: dry, intact Internal Medicine: Result - Labs CBC & Chem 7: 12/22/17 05:45 12/22/17 05:45 - ABG Interpretation ABG results: PT/INR, D-dimer PT 11.9 Seconds (9.4-12.1) 12/22/17 05:45 - VTE Documentation of Mechanical Device: Graduated compression elastic hosiery Consult Discharge Plan - Plan Referrals: Eleazar Gray MD [Primary Care Provider] -
[2017-12-24] MEDS: *HR* Heparin 5,000 UNIT/ML VIAL SQ SCH (05:55)
[2017-12-24] MEDS: Multivit/Ca/Min/Fe/FA 1 TAB TABLET PO SCH (05:55)
[2017-12-24 07:03] VITALS: BP 119/64
--- NOTE | 2017-12-24 08:56 | Physician Discharge Referral ---
Home Health/Hosp Referral Info Transfer to: Home Health Provider in Charge Post Discharge: PCP - Diagnosis (1) Diabetes mellitus Priority: Secondary Status: Chronic (2) CKD (chronic kidney disease) stage 3, GFR 30-59 ml/min Priority: Secondary Status: Chronic (3) Yeast dermatitis Priority: Secondary Status: Acute - Respiratory Orders Smoking Cessation: Smoking cessation has been advised. For more information, call the [place] Tobacco Quit Line at 5-482-HKVK-NOW. - Diet/Nutrition Diet/Nutrition Orders: No Concentrated Sweets - Activity Activity Orders: Walker - Services Needed Following services are medically necessary services: Nursing, Home Health Aide, Physical Therapy, Occupational Therapy - Transfer Medications Home Medications: Citalopram [CeleXA] 40 mg PO DAILY 10/16/16 [History] Clopidogrel [Plavix] 75 mg PO DAILY 10/16/16 [History] Gabapentin [Neurontin] 300 mg PO TID 10/16/16 [History] Simvastatin [Zocor] 20 mg PO HS 10/16/16 [History] Furosemide [Lasix] 20 mg PO DAILY 12/02/17 [History] Iron Ps Complex/B12/Folic Acid [Poly-Iron 150 Forte Capsule] 1 cap PO DAILY [History] Multivits,Ca,Min/Iron/FA/Lycop [Centrum Men's Tablet] 3 tab PO DAILY 12/02/17 [ History] Potassium Chloride [Klor-Con 10] 10 meq PO BID 12/02/17 [History] Ciprofloxacin [Cipro] 500 mg PO BID #8 tablet 12/04/17 [Rx] Allergies/Adverse Reactions: 3 Allergy/AdvReac Type Severity Reaction Status Date / Time Penicillins Allergy See Verified 11/13/17 22:32 Comments Certification: Further, I certify that my clinical findings support that this patient is homebound (i.e. absences from home require considerable and taxing effort and are for medical reasons or druze services or infrequently or short duration when for other reasons) because: Homebound Reason: Patient requires assistance of a person or device to safely leave home, Leaving home requires considerable and taxing effort due to condition Attestation: My signature below is to certify that this patient is under my care and that I, or nurse practitioner, or a physician's restaurant assistant manager working with me, has a face-to -face encounter with this patient.
--- NOTE | 2017-12-24 08:58 | Discharge Summary ---
Orders not resulted at time of discharge: Pending orders 12/29/17 04:00 Activated Partial Thrombo Time [COAG] MO Basic Metabolic Panel MO Complete Blood Count [HEME] MO Prothrombin Time INR [COAG] MO 01/05/18 04:00 Activated Partial Thrombo Time [COAG] MO Basic Metabolic Panel MO Complete Blood Count [HEME] MO Prothrombin Time INR [COAG] MO 01/12/18 04:00 Activated Partial Thrombo Time [COAG] MO Basic Metabolic Panel MO Complete Blood Count [HEME] MO Prothrombin Time INR [COAG] MO Date of Encounter: 12/24/17 Time of Encounter: 08:57 - Discharge Diagnosis (1) Diabetes mellitus Priority: Secondary Status: Chronic Comments: Continue current medications. Monitor fingerstick blood sugar. Follow up with PCP. Qualifiers: Diabetes mellitus type: type 2 Diabetes mellitus laborer marine terminal insulin use: without laborer marine terminal use Diabetes mellitus complication status: with kidney complications Diabetes mellitus complication detail: with chronic kidney disease Chronic kidney disease stage: stage 3 (moderate) Qualified Code(s): E11.22 - Type 2 diabetes mellitus with diabetic chronic kidney disease; N18.3 - Chronic kidney disease, stage 3 (moderate) (2) CKD (chronic kidney disease) stage 3, GFR 30-59 ml/min Priority: Secondary Status: Chronic Comments: Avoid nephrotoxic agents. Follow up with PCP in 1 to 2 weeks. (3) Yeast dermatitis Priority: Secondary Status: Acute Comments: Continue topical nystatin powder. Improving. (4) General weakness Priority: Primary Status: Acute Comments: Continue PT and OT with home health. Hospital course: Mr. Paulson is a 82 year old male Discharge discussed with: patient, family, nurse, social work - Time Spent with Patient Total time spent providing and/or coordinating discharge services: Less than 30 minutes - Discharge Medications Home Medications: Citalopram [CeleXA] 40 mg PO DAILY 10/16/16 [History] Clopidogrel [Plavix] 75 mg PO DAILY 10/16/16 [History] Simvastatin [Zocor] 20 mg PO HS 10/16/16 [History] Furosemide [Lasix] 20 mg PO DAILY 12/02/17 [History] Iron Ps Complex/B12/Folic Acid [Poly-Iron 150 Forte Capsule] 1 cap PO DAILY [History] Multivits,Ca,Min/Iron/FA/Lycop [Centrum Men's Tablet] 3 tab PO DAILY 12/02/17 [ History] Potassium Chloride [Klor-Con 10] 10 meq PO BID 12/02/17 [History] Ascorbic Acid [Vitamin C] 500 mg PO DAILY tablet 12/24/17 [Rx] Gabapentin [Neurontin] 300 mg PO TID 14 Days #42 capsule 12/24/17 [Rx] Nystatin POWDER [Nystop] 1 appl TP BID bottle 12/24/17 [Rx] Polyethylene Glycol 3350 [MiraLAX] 17 gm PO DAILY PRN powd.pack 12/24/17 [Rx] Sennosides/Docusate Sodium [Senna Plus] 2 each PO BID PRN tablet 12/24/17 [Rx] Allergies/Adverse Reactions: 3 Allergy/AdvReac Type Severity Reaction Status Date / Time Penicillins Allergy See Verified 11/13/17 22:32 Comments Date of admission: 12/05/17 12:59 Primary care physician: Eleazar Gray MD Consults: 12/05/17 13:25 Consult to Occupational Therapy [CONS] Routine Comment: WEAKNESS S/P UTI Reason for Consult: WEAKNESS S/P UTI Does patient have active BEDREST order?: No Is patient medically & hemodynamically stable?: Yes Patient assessed for mobility or mobilized this visit?: Yes Consult to Physical Therapy [CONS] Routine Comment: weakness s/p UTI Reason for Consult: WEAKNESS S/P UTI Does patient have active BEDREST order?: No Is patient medically & hemodynamically stable?: Yes Patient assessed for mobility or mobilized this visit?: Yes Consult to Recreational Therapy [CONS] Routine Comment: Consult to Silver Service Waiter [CONS] Routine Reason for SW Consult: SWING PATIENT 12/05/17 14:22 Consult to Wound Care [CONS] Stat Reason for Consult: wounds on lower legs Call Completed: Yes 12/05/17 15:05 Consult to Speech Therapy [CONS] Routine Comment: Evaluate, develop and implement POC Reason for Consult: Dysphagia Time Notified: 15:06 Call Completed: Yes Discharging clinician: Edwin Pena Anticipated date of discharge: 12/24/17 - Constitutional Vitals: Temp Pulse Resp BP Pulse Ox 98.8 F 68 18 119/64 94 12/24/17 07:02 12/24/17 07:02 12/24/17 07:02 12/24/17 07:02 12/24/17 07:02 General appearance: Present: A&O X 3, morbidly obese, pleasant, answers questions appropriately - Head Head exam: Present: atraumatic, normocephalic - Eye Eye exam: Present: PERRL, conjuntiva pink, sclera anicteric Pupils: Present: PERRL - Neck Neck exam general surgery: Present: supple, trachea midline. Absent: lymphadenopathy - Respiratory Respiratory exam: Present: CTAB. Absent: accessory muscle use, rales, rhonchi, wheezes - Cardiovascular Cardiovascular exam: Present: RRR, +S1, +S2. Absent: diastolic murmur, gallop, rubs, systolic murmur - GI/Abdominal GI/Abdominal exam: Present: normal bowel sounds, soft, no peritoneal signs. Absent: distended, tenderness - Extremities Exam Extremities exam: Present: warm, radial pulses palpable and symmetrical. Absent : calf tenderness, cyanotic, pedal edema Additional comments: Bilateral lower extremities wrapped. Wound following. - Neurological Exam Neurological exam: Present: CN II-XII intact, oriented X3, no focal deficits. Absent: pronater drift, facial droop, speech deficit - Skin Skin exam: Present: dry, intact - Patient Status Disposition: Home Health Service Condition: Good Functional capacity at discharge: uses cane/walker Overall status at discharge: patient is progressing back to baseline - Discharge Instructions Follow Up With: Silke Merrill RN [Registered Nurse] - 12/25/17 9:00 am Eleazar Gray MD [Primary Care Provider] - Additional Instructions: Appt w/ wound RN 12/25/17 @ [address] [place] [id number] - Diet and Activity Activity: as per physical therapy Diet: diabetic diet - VTE Documentation of Mechanical Device: Graduated compression elastic hosiery
[2017-12-24] MEDS: Ascorbic Acid 500 MG TABLET PO SCH (10:55)
[2017-12-24] MEDS: Nystatin POWDER 30 GM BOTTLE TP SCH (10:55)
[2017-12-24] MEDS: Gabapentin 300 MG CAPSULE PO SCH (10:55)
[2017-12-24] MEDS: Furosemide 20 MG TABLET PO SCH (10:55)
== END 2017-12-24 11:30 | disposition home health service (06) | DRG 690 ==
LOC: INPGRE 12:59